=== PATIENT | female | born 1925 | race African-American/Black ===

== ENCOUNTER 2016-02-26 21:05 | Inpatient (IN) | payer MEDICARE, BC, OTHER ==
[~2016-02-26] VITALS: Ht 160 cm; Wt 71.7 kg
[~2016-02-26 21:05] MED LIST: ASPI81TA82 PO; FLOV44AE INH; FLUT1SPR9 EACH NARE; LEVO100T4 PO; REFR0.5D4 EACH EYE; VITA-83 PO; VITATAB25 PO; ZITH250T PO
[2016-02-26 21:08] VITALS: BP 144/66; PULSE 87; RESP 18; TEMP 101.5; O2SAT 95
[2016-02-26] MEDS ORDERED: SODIUM CHLOR 0.9% 1000 ML INJ 1,000 ML IV ONE (21:14)
[2016-02-26] MEDS ORDERED: ACETAMINOPHEN 325 MG TAB PO ONE (21:15)
[2016-02-26] MEDS ORDERED: ASPI81CH CHEW (21:21)
[2016-02-26] MEDS ORDERED: FLUTI44I INH (21:21)
[2016-02-26] MEDS ORDERED: VITA10003 PO (21:21)
[2016-02-26] MEDS ORDERED: LEVO100T5 PO (21:21)
[2016-02-26] MEDS ORDERED: ASCO500C PO (21:21)
[2016-02-26] MEDS ORDERED: REFR0.5D9 EACH EYE (21:21)
[2016-02-26] MEDS ORDERED: FLUT1SPR9 EACH NARE (21:21)
--- NOTE | 2016-02-26 22:21 | RADRPT ---
EXAM DATE/TIME: 02/26/2016 21:55 [facility] COMPARISON: CHEST SINGLE AP, December 21, 2015, 12:28. INDICATIONS : Fever, weakness starting today MEDICAL HISTORY : None. SURGICAL HISTORY : None. ENCOUNTER: Initial ACUITY: 1 day PAIN SCORE: 0/10 LOCATION: Bilateral chest FINDINGS: A single view of the chest demonstrates the lungs to be symmetrically aerated without evidence of mas s, infiltrate or effusion. The cardiomediastinal contours are unremarkable. Osseous structures are intact. CONCLUSION: No acute disease. Waqar Cortez MD on February 26, 2016 at 22:19 Board Certified Radiologist. This report was verified electronically.
[2016-02-26 22:34] LABS: AUTOMATED NEUTROPHIL # 3.9 TH/MM3 (1.8-7.7); EOSINOPHIL % 0.2 % (0.0-4.0); HEMATOCRIT 40.5 % (35.0-46.0); HEMO FLAGS DIFF FINAL; LYMPH % 2.9 % (9.0-44.0); LYMPHOCYTE # 0.1 TH/MM3 (1.0-4.8); MEAN CORPUSCULAR HEMOGLOBIN 28.3 PG (27.0-34.0); MEAN CORPUSCULAR HGB CONC 32.6 % (32.0-36.0); NEUT % 95.9 % (16.0-70.0); PLATELET COUNT 138 TH/MM3 (150-450); RED BLOOD COUNT 4.66 MIL/MM3 (4.00-5.30); RED CELL DISTRIBUTION WIDTH 15.2 % (11.6-17.2); WHITE BLOOD COUNT 4.1 TH/MM3 (4.0-11.0)
[2016-02-26 22:59] LABS: APTT (PATIENT) 20.9 SEC (24.3-30.1); PROTHROMBIN TIME - PATIENT 11.4 SEC (9.8-11.6)
[2016-02-26 23:03] LABS: ALKALINE PHOSPHATASE 114 U/L (45-117); TOTAL BILIRUBIN ADULT 0.7 MG/DL (0.2-1.0)
[2016-02-26 23:05] LABS: ALT (GPT) 38 U/L (10-53); ANION GAP 8 MEQ/L (5-15); AST (GOT) 37 U/L (15-37); BLOOD UREA NITROGEN 26 MG/DL (7-18); CHLORIDE 109 MEQ/L (98-107); GLOMERULAR FILTRATION RATE 34 ML/MIN (>89); MAGNESIUM 2.2 MG/DL (1.5-2.5); POTASSIUM 3.7 MEQ/L (3.5-5.1); SODIUM (NA) 144 MEQ/L (136-145)
--- NOTE | 2016-02-26 23:25 | PD ---
HPI Chief Complaint: Abdominal Pain Time Seen by Provider: 21:10 Travel History International Travel<30 days: No Contact w/Intl Traveler<30days: No Traveled to known affect area: No History of Present Illness HPI 89-year-old female presents with right sided abdominal pain and fever with nausea. She denies other complaints and is with her son who help supplement history. He states her symptoms all started this evening at 8 PM. He states that she was having chills and started saying she didn't feel good. She presented by ambulance. Patient is unable to supplement significant additional history and records help supplement. PFSH Past Medical History Narrative Medical by records Cancer: Yes Chemotherapy: Yes Diminished Hearing: Yes (HEARING AIDES BILAT) Hypertension: Yes Immunizations Current: Yes Thyroid Disease: Yes Past Surgical History Abdominal Surgery: Yes (ABD TUMOR REMOVED) Section: Yes Hysterectomy: Yes Social History Alcohol Use: No Tobacco Use: No Substance Use: No Allergies-Medications (Allergen,Severity, Reaction): Coded Allergies: Codeine (Verified Allergy, Severe, 02/26/16) Darvon (Verified Allergy, Severe, 02/26/16) Dyazide (Verified Allergy, Severe, 02/26/16) Penicillin (Verified Allergy, Severe, 02/26/16) Sulfa (Verified Allergy, Severe, 02/26/16) Uncoded Allergies: CHLAROMYCETIN (Allergy, Unknown, UNKNOWN, 02/26/16) Reported Meds & Prescriptions Reported Meds & Active Scripts Active Reported Levothyroxine (Levothyroxine Sodium) 100 Mcg Tab 100 Mcg PO DAILY Flonase Allergy Relief Children Nasal [place] (Fluticasone Nasal [place]) 50 Mcg/ Act [place] 2 [place] EACH NARE DAILY 50 mcg/spray Flovent Hfa 10.6 GM Inh (Fluticasone Propionate) 44 Mcg/Act Inh 2 Puff INH BID Use daily at the same time. Refresh Plus Unit-Dose Opth Drops (Carboxymethylcellulose Sodium Opth Drops) 0.5 % Drops 1 Drop EACH EYE HS Vitamin C (Ascorbic Acid) 500 Mg Cap 500 Mg PO Vitamin D-3 (Cholecalciferol) 1,000 Unit Tab 1,000 Units PO DAILY Aspirin 81 Mg Chew 81 Mg CHEW DAILY Review of Systems ROS Limitations: Poor Historian Except as stated in HPI: all other systems reviewed are Neg Physical Exam Exam Limitations: Poor Historian Narrative GENERAL: Well-nourished, well-developed patient. SKIN: Warm and dry. HEAD: Normocephalic and atraumatic. EYES: No injection or drainage. ENT: No nasal drainage noted. NECK: Supple, trachea midline. CARDIOVASCULAR: Regular rate and rhythm RESPIRATORY: no increased effort. No accessory muscle use. GASTROINTESTINAL: Abdomen soft, ttp rlq, nondistended. no rebound NEUROLOGICAL: Awake. moves all extremities. Normal speech. Data Data Last Documented VS Vital Signs Date Time Temp Pulse Resp B/P Pulse Ox O2 Delivery O2 Flow Rate FiO2 02/26/16 21:22 18 02/26/16 21:08 101.5 87 144/66 95 Orders Electrocardiogram (02/26/16 21:14) Complete Blood Count With Diff (02/26/16 21:14) Comprehensive Metabolic Panel (02/26/16 21:14) Prothrombin Time / Inr (Pt) (02/26/16 21:14) Act Partial Throm Time (Ptt) (02/26/16 21:14) Lactic Acid Sepsis Protocol (02/26/16 21:14) Magnesium (Mg) (02/26/16 21:14) Lipase (02/26/16 21:14) Urinalysis - C+S If Indicated (02/26/16 21:14) Blood Culture (02/26/16 21:14) Chest, Single Ap (02/26/16 21:14) Blood Glucose (02/26/16 21:14) Ecg Monitoring (02/26/16 21:14) Iv Access Insert/Monitor (02/26/16 21:14) Oximetry (02/26/16 21:14) Acetaminophen (Tylenol) (02/26/16 21:15) Ct Abd/Pel W Iv Contrast(Rout) (02/26/16 21:14) Sodium Chlor 0.9% 1000 Ml Inj (Ns 1000 M (02/26/16 21:14) Iodixanol 320 Inj (Rad Ct) (Visipaque 32 (02/26/16 23:35) Ketorolac Inj (Toradol Inj) (02/27/16 00:00) Urine Culture (02/27/16 00:15) Aztreonam Inj (Azactam Inj) (02/27/16 00:39) Admit Order (Ed Use Only) (02/27/16 00:41) Labs Laboratory Tests Test 02/26/16 02/27/16 22:15 00:15 Prothrombin Time 11.4 SEC Prothromb Time International 1.0 RATIO Ratio Activated Partial 20.9 SEC Thromboplast Time Sodium Level 144 MEQ/L Potassium Level 3.7 MEQ/L Chloride Level 109 MEQ/L Carbon Dioxide Level 27.0 MEQ/L Anion Gap 8 MEQ/L Blood Urea Nitrogen 26 MG/DL Creatinine 1.69 MG/DL Estimat Glomerular Filtration 34 ML/MIN Rate Random Glucose 117 MG/DL Lactic Acid Level 2.0 mmol/L Calcium Level 9.6 MG/DL Magnesium Level 2.2 MG/DL Total Bilirubin 0.7 MG/DL Aspartate Amino Transf 37 U/L (AST/SGOT) Alanine Aminotransferase 38 U/L (ALT/SGPT) Alkaline Phosphatase 114 U/L Total Protein 6.5 GM/DL Albumin 3.5 GM/DL Lipase 149 U/L White Blood Count 4.1 TH/MM3 Red Blood Count 4.66 MIL/MM3 Hemoglobin 13.2 GM/DL Hematocrit 40.5 % Mean Corpuscular Volume 87.0 FL Mean Corpuscular Hemoglobin 28.3 PG Mean Corpuscular Hemoglobin 32.6 % Concent Red Cell Distribution Width 15.2 % Platelet Count 138 TH/MM3 Mean Platelet Volume 9.4 FL Neutrophils (%) (Auto) 95.9 % Lymphocytes (%) (Auto) 2.9 % Monocytes (%) (Auto) 1.0 % Eosinophils (%) (Auto) 0.2 % Basophils (%) (Auto) 0.0 % Neutrophils # (Auto) 3.9 TH/MM3 Lymphocytes # (Auto) 0.1 TH/MM3 Monocytes # (Auto) 0.0 TH/MM3 Eosinophils # (Auto) 0.0 TH/MM3 Basophils # (Auto) 0.0 TH/MM3 CBC Comment DIFF FINAL Differential Comment Urine Color YELLOW Urine Turbidity HAZY Urine pH 5.5 Urine Specific [place] 1.019 Urine Protein 30 mg/dL Urine Glucose (UA) NEG mg/dL Urine Ketones NEG mg/dL Urine Occult Blood LARGE Urine Nitrite POS Urine Bilirubin NEG Urine Urobilinogen LESS THAN 2.0 MG/DL Urine Leukocyte Esterase LARGE Urine RBC 111 /hpf Urine WBC 89 /hpf Urine Squamous Epithelial 11 /hpf Cells Urine Renal Epithelial Cells 3 /hpf Urine Bacteria RARE /hpf Urine Mucus FEW /lpf Microscopic Urinalysis Comment CATH-CULTURE IND MDM Medical Decision Making Medical Screen Exam Complete: Yes Emergency Medical Condition: Yes Medical Record Reviewed: Yes (pmh confirmed) Interpretation(s) CBC & BMP Diagram 02/26/16 22:15 Last 24 hours Impressions Chest X-Ray 02/26/162113 Signed Impressions: Service Date/Time: Friday, February 26, 2016 21:55 - CONCLUSION: No acute disease. Waqar Cortez MD Abdomen/Pelvis CT 02/26/162113 Signed Impressions: Service Date/Time: Friday, February 26, 2016 23:22 - CONCLUSION: 1. 4 mm distal right ureteral calculus with mild to moderate right hydronephrosis. 2. Mildly nonspecific bowel gas pattern most consistent with a mild ileus and/or gastroenteritis. 3. Simple appearing cysts in the kidneys and liver. Huang Casper MD Differential Diagnosis UTI, stone, cyst, appendicitis, diverticulitis.... Narrative Course Will check blood work, chest x-ray, urinalysis, CT abdomen and dose with IV fluids and reevaluate, toradol for pain ct with 4 mm right distal ureteral stone, nurse had difficulty getting UA with catheter as patient could not tolerate. Advised patient given fever and kidney stone this is very important she is trying now on a fracture pain and if that does not work she agrees to trying catheter again ua with uti, will dose with aztreonam and admit to the hospital for further care , patient and family updated Physician Communication Physician Communication multiple calls placed to dr yoo without return of call, dr anthony guthrie states will cover overnight Diagnosis Primary Impression: Ureteral stone Additional Impressions: UTI (urinary tract infection) Qualified Code: N39.0 - Urinary tract infection with hematuria, site unspecified Fever Qualified Code: R50.9 - Fever, unspecified fever cause Renal insufficiency Admitting Information Admitting Physician Requests: Admit Юлия Booth MD Feb 26, 2016 23:25
[2016-02-26] MEDS ORDERED: IODIXANOL 320 MG/ML 10 ML VIAL (for Rad CT) IV ONE (23:35)
--- NOTE | 2016-02-26 23:49 | RADRPT ---
EXAM DATE/TIME: 02/26/2016 23:22 [facility] COMPARISON: None. INDICATIONS : Fever and left lower quadrant pain. IV CONTRAST: 47 cc Visipaque (iodixanol) IV ORAL CONTRAST: No oral contrast ingested. RADIATION DOSE: 14.28 CTDIvol (mGy) MEDICAL HISTORY : Hypertension. Carcinoma, not otherwise specified. SURGICAL HISTORY : Hysterectomy. section.tumor removed from abdomen ENCOUNTER: Initial ACUITY: 1 day PAIN SCALE: 6/10 LOCATION: Left lower quadrant abdomen TECHNIQUE: Volumetric scanning of the abdomen and pelvis was performed. Using automated exposure control and ad justment of the mA and/or kV according to patient size, radiation dose was kept as low as reasonably achievable to obtain optimal diagnostic quality images. FINDINGS: LOWER LUNGS: The visualized lower lungs are clear. LIVER: Normal in size and shape with 2 low attenuation lesions consistent with cysts. The larger is in the l eft lobe measuring up to approximately 1.8 cm. There is a smaller 8mm lesion in the right lobe.. The re is no dilation of the biliary tree. No calcified gallstones. SPLEEN: Normal size without lesion. PANCREAS: Within normal limits. KIDNEYS: Normal in size and shape. There is mild to moderate right hydronephrosis with dilatation of the right ureter down to the level of the proximal pelvis secondary to 4 mm calculus. There is a 8 x 5 mm calc ulus in the lower pole the right kidney. The left kidney is unremarkable except for small simple cyst s. There is a larger cyst in the upper pole of the right kidney. ADRENAL GLANDS: Within normal limits. VASCULAR: There is no aortic aneurysm. BOWEL/MESENTERY: There is a mildly nonspecific bowel gas pattern with multiple loops of nondilated air-containing smal l bowel several small air-fluid levels. Gas and stool is noted within with no focal lesion or inflamm atory change. No oral contrast was given sensitivity. There is no free air or fluid. There is no evid ence to suggest acute diverticulitis. ABDOMINAL WALL: Within normal limits. RETROPERITONEUM: There is no lymphadenopathy. BLADDER: No wall thickening or mass. REPRODUCTIVE: Within normal limits. INGUINAL: There is no lymphadenopathy or hernia. MUSCULOSKELETAL: Degenerative change and scoliosis is present in the lumbar spine. CONCLUSION: 1. 4 mm distal right ureteral calculus with mild to moderate right hydronephrosis. 2. Mildly nonspecific bowel gas pattern most consistent with a mild ileus and/or gastroenteritis. 3. Simple appearing cysts in the kidneys and liver. Huang Casper MD on February 26, 2016 at 23:40 Board Certified Radiologist. This report was verified electronically.
[2016-02-27] MEDS ORDERED: KETOROLAC TROMETHAMINE 30 MG/ML (IVP) VIAL IV PUSH ONE
[2016-02-27 00:30] LABS: BACTERIA, URINE RARE /hpf; BLOOD, URINE LARGE (NEG); COMMENT (UR) CATH-CULTURE IND; CULTURE IF INDICATED CATH CULTURE IND; GLUCOSE,URINE NEG (NEG); KETONE, URINE NEG (NEG); MUCUS URINE FEW /lpf (OCC); NITRITE,URINE POS (NEG); PH, URINE 5.5 (5.0-8.5); RENAL EPITHELIAL CELLS 3 /hpf; SQUAMOUS EPITHELIAL CELL URINE 11 /hpf (0-5); URINE COLOR YELLOW (YELLW/STRAW)
[2016-02-27] MEDS ORDERED: AZTREONAM INJ 1,000 MG in SODIUM CHLORIDE 0.9% INJ 100 ML IV STA (00:39)
[2016-02-27] MEDS ORDERED: NALOXONE HCL 0.4 MG/ML AMP IV PRN (02:15)
[2016-02-27] MEDS ORDERED: SODIUM CHLORIDE 0.9% FLUSH 5 ML FLUSH FLUSH PRN (02:15)
[2016-02-27] MEDS ORDERED: ONDANSETRON HCL 4 MG/2 ML VIAL IVP PRN (02:15)
[2016-02-27] MEDS ORDERED: ACETAMINOPHEN 325 MG TAB PO PRN (02:15)
[2016-02-27] MEDS: SODIUM CHLOR 0.9% 1000 ML INJ 1,000 ML IV SCH ×3 (03:48→17:59)
[2016-02-27 05:10] VITALS: BP 97/51; PULSE 77; RESP 22; TEMP 97.5; O2SAT 98
[2016-02-27] MEDS: LEVOTHYROXINE SODIUM 100 MCG TAB PO SCH (05:40)
[2016-02-27 08:04] VITALS: BP 115/55; PULSE 84; RESP 18; TEMP 95.2; O2SAT 92
[2016-02-27] MEDS: FLUTICASONE PROPIONATE 50 MCG/ACT 16 GM NASAL SPRAY EACH NARE SCH (09:00)
[2016-02-27] MEDS: FLUTICASONE PROPIONATE 44 MCG/ACT 10.6 GM INHALER INH SCH ×2 (09:00→21:00)
[2016-02-27] MEDS: TAMSULOSIN HCL 0.4 MG CAP PO SCH (10:10)
[2016-02-27] MEDS: SODIUM CHLORIDE 0.9% FLUSH 5 ML FLUSH FLUSH SCH ×2 (10:10→21:00)
[2016-02-27] MEDS: ASPIRIN 81 MG CHEW TAB CHEW SCH (10:10)
--- NOTE | 2016-02-27 10:23 | RADRPT ---
EXAM DATE/TIME: 02/27/2016 09:42 [facility] COMPARISON: CT ABDOMEN & PELVIS W CONTRAST, February 26, 2016, 23:22. INDICATIONS : Pain in LLQ, evaluate for calculi. MEDICAL HISTORY : Hypertension. SURGICAL HISTORY : Hysterectomy. ENCOUNTER: Subsequent ACUITY: 2 days PAIN SCORE: Non-responsive. LOCATION: Left abdomen FINDINGS: Supine view of the abdomen was performed. The abdominal bowel gas pattern is normal. There is stool in the colon. No abnormal dilatation is demonstrated. There is evidence of previous abdominal surgery with surgical clips in the lower midabdomen. Contrast is noted in both collecting systems. There is mild to moderate hydronephrosis of the right collecting system which has been previously described on patient's recent CT abdomen/pelvis. The right renal stone and right ureteral stone noted on the CT s can is not well-visualized on this exam. The stones are most likely hidden by the contrast in the col lecting system. No hydronephrosis is seen in the left collecting system. There is moderate diffuse de generative changes and distal degeneration involving the lumbar spine. The bony circular grossly inta ct. The urinary bladder is grossly unremarkable. CONCLUSION: 1. Mild to moderate hydronephrosis of the right collecting system. 2. Moderate stool in the colon. Martin Wade MD on February 27, 2016 at 10:18 Board Certified Radiologist. This report was verified electronically.
--- NOTE | 2016-02-27 11:56 | EKG ---
Date Performed: 02/26/2016 Time Performed: 22:25:49 PTAGE: 89 years EKG: Sinus rhythm WITH SINUS ARRHYTHMIA PATTERN CONSISTENT WITH PULMONARY DISEASE LEFT ANTERIOR FASCICULAR BLOCK NONSP ECIFIC T-WAVE ABNORMALITY ABNORMAL ECG Since PREVIOUS TRACING , no significant change noted PREVIOUS TRACIN12/21/2015 13.27 DOCTOR: Renny Costa Interpretating Date/Time 02/27/2016 11:54:05
[2016-02-27 12:41] VITALS: BP 115/53; PULSE 88; RESP 20; TEMP 96.4; O2SAT 92
--- NOTE | 2016-02-27 13:06 | HHI.HP ---
History of Present Illness Service INTERNAL MEDICINE Primary Care Physician AMARJIT ASIF MD Admission Diagnosis Right Ureteral Calculus. Right Hydronephrosis. Acute On Chronic Kidney Disease, Stage 2. Urinary Tract Infection, on admission. Diagnoses: History of Present Illness This patient is an 89 year old female who has a history of developing severe pain in the setting of also having fever and chills. The pain was in the right abdomen and right flank areas. She had associated nausea and vomiting episodes. The onset was around 8pm on the evening of admission. Her symptoms continued to worsen and she told her son that she was feeling worse. Emergency services were called as she had become extremely weak. Otherwise, she has been in her usual state of health without any adverse changes. There is no report of any recent major illness, infection or trauma. Also, she has not had any recent travel. She was transported to the [facility] Emergency Room and found with a ureteral calculus with associated intractable pain and urinary tract infection. She was stabilized and admitted to the hospital in this regard. Review of Systems Constitutional: COMPLAINS OF: Fever, Chills Gastrointestinal: COMPLAINS OF: Abdominal pain, Nausea, Vomiting Past Family Social History Allergies: Coded Allergies: Codeine (Verified Allergy, Severe, 02/26/16) Darvon (Verified Allergy, Severe, 02/26/16) Dyazide (Verified Allergy, Severe, 02/26/16) Penicillin (Verified Allergy, Severe, 02/26/16) Sulfa (Verified Allergy, Severe, 02/26/16) Uncoded Allergies: CHLAROMYCETIN (Allergy, Unknown, UNKNOWN, 02/26/16) Past Medical History 1. Allergies. 2. Hypothyroidism. 3. Hyperlipidemia. 4. Advanced Osteoarthritis. 5. Chronic Kidney Disease, Stage 2. Past Surgical History 1. Hysterectomy. 2. Caesarian Section. 3. Removal of Abdominal Tumor. Family History She has an elderly sister with multiple medical problems. She has a son who visits frequently from [place] in good health. Social History She is a . She has in home caretakers. She is of nonsmoking and nondrinking status. She makes no use of recreational drugs. Physical Exam Vital Signs Vital Signs Date Time Temp Pulse Resp B/P Pulse Ox O2 Delivery O2 Flow Rate FiO2 02/27/16 08:04 95.2 84 18 115/55 92 02/27/16 05:10 97.5 77 22 97/51 98 02/26/16 21:22 18 02/26/16 21:08 101.5 87 18 144/66 95 Physical Exam GENERAL: This is a well-nourished, well-developed patient, in no apparent distress while getting analgesic support. SKIN: No rashes, ecchymoses or lesions. Cool and dry. HEAD: Atraumatic. Normocephalic. No temporal or scalp tenderness. EYES: Pupils equal round and reactive. There is arcus senilis for both eyes. Extraocular motions intact. No scleral icterus. No injection or drainage. ENT: Nose is without any drainage. Throat without erythema, tonsillar hypertrophy or exudate. Uvula midline. Airway patent. NECK: Trachea midline. No JVD, thyromegaly, carotid bruits or lymphadenopathy. Supple, nontender, no meningeal signs. CARDIOVASCULAR: Regular rate and rhythm to exam. RESPIRATORY: Clear to auscultation. Breath sounds equal bilaterally. No wheezes , rales, or rhonchi. GASTROINTESTINAL: Abdomen soft, non-tender, nondistended. No hepato-splenomegaly , or palpable masses. No guarding. MUSCULOSKELETAL: Extremities without clubbing, cyanosis, or edema. No joint tenderness, effusion, or edema noted. No calf tenderness. Negative Homans sign bilaterally. Sequential compression wraps are on both lower limbs. NEUROLOGICAL: Awake and alert. Cranial nerves II through XII intact. Motor and sensory grossly within normal limits. Five out of 5 muscle strength in all muscle groups. Normal speech. Laboratory Laboratory Tests Test 02/26/16 02/27/16 22:15 00:15 Prothrombin Time 11.4 Prothromb Time International 1.0 Ratio Activated Partial 20.9 Thromboplast Time Sodium Level 144 Potassium Level 3.7 Chloride Level 109 Carbon Dioxide Level 27.0 Anion Gap 8 Blood Urea Nitrogen 26 Creatinine 1.69 Estimat Glomerular Filtration 34 Rate Random Glucose 117 Lactic Acid Level 2.0 Calcium Level 9.6 Magnesium Level 2.2 Total Bilirubin 0.7 Aspartate Amino Transf 37 (AST/SGOT) Alanine Aminotransferase 38 (ALT/SGPT) Alkaline Phosphatase 114 Total Protein 6.5 Albumin 3.5 Lipase 149 White Blood Count 4.1 Red Blood Count 4.66 Hemoglobin 13.2 Hematocrit 40.5 Mean Corpuscular Volume 87.0 Mean Corpuscular Hemoglobin 28.3 Mean Corpuscular Hemoglobin 32.6 Concent Red Cell Distribution Width 15.2 Platelet Count 138 Mean Platelet Volume 9.4 Neutrophils (%) (Auto) 95.9 Lymphocytes (%) (Auto) 2.9 Monocytes (%) (Auto) 1.0 Eosinophils (%) (Auto) 0.2 Basophils (%) (Auto) 0.0 Neutrophils # (Auto) 3.9 Lymphocytes # (Auto) 0.1 Monocytes # (Auto) 0.0 Eosinophils # (Auto) 0.0 Basophils # (Auto) 0.0 CBC Comment DIFF FINAL Differential Comment Urine Color YELLOW Urine Turbidity HAZY Urine pH 5.5 Urine Specific [place] 1.019 Urine Protein 30 Urine Glucose (UA) NEG Urine Ketones NEG Urine Occult Blood LARGE Urine Nitrite POS Urine Bilirubin NEG Urine Urobilinogen LESS THAN 2.0 Urine Leukocyte Esterase LARGE Urine RBC 111 Urine WBC 89 Urine Squamous Epithelial 11 Cells Urine Renal Epithelial Cells 3 Urine Bacteria RARE Urine Mucus FEW Microscopic Urinalysis Comment CATH-CULTURE IND Date/Time Procedure Status Source Growth 02/27/16 00:15 Urine Culture Received Urine Catheterized Urine Pending 02/26/16 22:15 Aerobic Blood Culture - Preliminary Resulted Blood Peripheral NO GROWTH IN 1 DAY 02/26/16 22:15 Anaerobic Blood Culture - Preliminary Resulted Blood Peripheral NO GROWTH IN 1 DAY Result Diagram: 02/26/165 02/26/165 Assessment and Plan Assessment and Plan ASSESSMENT 1. Right Ureteral Calculus. 2. Right Hydronephrosis. 3. Urinary Tract Infection, on admission. 4. Intractable Pain. 5. Chronic Kidney Disease, Stage 2. 6. Advanced Osteoarthritis. 7. Hypothyroidism. 8. Hyperlipidemia. 9. Allergies. PLAN 1. Admit to the hospital as an Inpatient. 2. Intravenous antibiotics. 3. Intravenous analgesic support. 4. Intravenous hydration with electrolyte repletion. 5. Consultation to Urology. 6. Follow up laboratory assessment. 7. DVT and PE prophylaxis. Amarjit Asif MD Feb 27, 2016 13:06
--- NOTE | 2016-02-27 14:41 | MB ---
cc: DOMINIK AMAYA MD, DANNIE E. M.D. DATE OF CONSULTATION: 02/27/2016 REASON FOR CONSULTATION 1. Right ureteral calculus with mild hydronephrosis. 2. Right renal stone. 3. Urinary tract infection. HISTORY OF PRESENT ILLNESS The patient is a 89-year-old female with history of chronic kidney disease stage II, who began having right upper quadrant pain radiating to her right flank yesterday afternoon associated with nausea and vomiting. She notified her son who called 911 and was taken to [facility] by ambulance. She was also extremely weak. Otherwise, she had been in her usual state of health without any adverse changes. In the ER she had a CT of the abdomen and pelvis with and without contrast done which showed a 6 mm stone in the right lower pole of her kidney as well as a 4 mm mid ureteral stone with mild hydronephrosis. She also has a slightly elevated creatinine of 1.6 and a urinary tract infection. She was subsequently admitted for further evaluation and urology was consulted. Currently she is sleeping in her bed after getting a dose of pain medication approximated 10 o'clock this morning. Her son is providing history. According to her son she denied any pain today, she denies any prior history of kidney stones, denies any family history of kidney stones as well. He denies any recent fevers or chills today. He has also not noticed her complain of any nausea or vomiting. REVIEW OF SYSTEMS See HPI, otherwise all systems reviewed otherwise were negative. PAST MEDICAL HISTORY Significant for: 1. Hypothyroidism. 2. Hyperlipidemia. 3. Chronic kidney disease, stage II. 4. Advanced osteoarthritis. PAST SURGICAL HISTORY 1. Status post hysterectomy. 2. Status post section. 3. Status post removal of abdominal tumor. ALLERGIES CLARITHROMYCIN, CODEIEN, DYAZIDE, PENICILLIN, SULFA. FAMILY HISTORY Denies urolithiasis or genitourinary malignancy. SOCIAL HISTORY She is a . She has home caretakers. She does not smoke or drink or use illicit drugs. PHYSICAL EXAMINATION VITAL SIGNS: Her T-max is 101.5, T current is 96.4, pulse 88, respiratory rate 20, BP 115/53, sating 92% on room air. GENERAL: She is resting comfortably in her bed sound asleep. HEAD: Normocephalic, atraumatic. LUNGS: Clear to auscultation bilaterally. No wheezes, rales or rhonchi. HEART: Regular rate and rhythm. No murmurs, gallops or rubs. ABDOMEN: Soft, nontender, nondistended. Positive bowel sounds. GENITOURINARY: No CVA tenderness bilaterally. PELVIC: Exam deferred. EXTREMITIES: Nontender, no clubbing, cyanosis or edema. SKIN: No ulcers or rashes. PSYCHE: Normal affect. MUSCULOSKELETAL: Full range of motion. LABORATORY DATA White count 4.1, hemoglobin 13.2, hematocrit 40.5, platelet count 138. Sodium 144, potassium 3.7, chloride 109, bicarb 27, BUN 26, creatinine 1.69, glucose 117, calcium 9.6. Urinalysis shows urine pH 5.5, specific gravity 1.019, large blood, positive nitrate, large leukocyte esterase, culture is currently pending. IMAGING STUDIES CT of the abdomen and pelvis with and without contrast was performed. She has mild right hydronephrosis secondary to a 4 mm mid ureteral stone. She also has nonobstructing 6 mm right renal stone. ASSESSMENT AND PLAN The patient is a 89-year-old female with history of chronic kidney disease, who presented with right upper quadrant pain and flank pain and a UTI, was found to have a 4 mm mid ureteral stone with mild hydronephrosis as well as a 6 mm non-obstructing right ureteral stone. PLAN Currently the patient is resting comfortably. She has not had a fever for almost 12 hours. A KUB was done earlier today which showed the presence of contrast in her right kidney but also contrast the entire length of the ureter and entering her bladder on the right side indicating she has a minimal obstruction on the right side and possibly already passed the stone. Recommend conservative management at this time. Will allow her to eat on her own. Will start her on Flomax 0.4 mg daily and strain all her urine, also continue IV fluids. She has a high likelihood of passing the stone based on the size and location as well as the way her ureter looked on CAT scan, it was dilated distal to the stone as well indicating that she has somewhat of a high-pressure system. If she continues to improve then she can be discharged home and follow up as an outpatient for treatment of her stones. However, if her clinical picture worsens, then she will need intervention. The case was discussed with her son who agrees with the plan. MD SHERWIN Loredo/PRINCESS /1:28 PM /2:07 PM
[2016-02-27 15:42] VITALS: BP 91/54; PULSE 62; RESP 20; TEMP 96.2; O2SAT 92
[2016-02-27] MEDS: AZTREONAM INJ 1,000 MG in SODIUM CHLORIDE 0.9% INJ 100 ML IV SCH (17:59)
[2016-02-27 20:00] VITALS: BP 120/56; PULSE 77; RESP 22; TEMP 97.4; O2SAT 94
[2016-02-27] MEDS: CARBOXYMETHYLCELL SOD 0.5% OPTH SOLN 15 ML BTL EACH EYE SCH (21:48)
[2016-02-28 00:41] VITALS: BP 115/58; PULSE 72; RESP 18; TEMP 96.1; O2SAT 99
[2016-02-28] MEDS: SODIUM CHLOR 0.9% 1000 ML INJ 1,000 ML IV SCH ×3 (01:38→18:06)
[2016-02-28] MEDS: AZTREONAM INJ 1,000 MG in SODIUM CHLORIDE 0.9% INJ 100 ML IV SCH ×2 (04:24→15:50)
[2016-02-28 06:11] VITALS: BP 112/53; PULSE 68; RESP 16; TEMP 96.7; O2SAT 98
[2016-02-28] MEDS: LEVOTHYROXINE SODIUM 100 MCG TAB PO SCH (06:19)
[2016-02-28 06:57] LABS: AUTOMATED NEUTROPHIL # 15.2 TH/MM3 (1.8-7.7); BASOPHIL # 0.1 TH/MM3 (0-0.2); BASOPHIL % 0.3 % (0.0-2.0); EOSINOPHIL # 0.1 TH/MM3 (0-0.4); EOSINOPHIL % 0.4 % (0.0-4.0); HEMATOCRIT 33.5 % (35.0-46.0); HEMO FLAGS DIFF FINAL; LYMPH % 5.2 % (9.0-44.0); LYMPHOCYTE # 0.9 TH/MM3 (1.0-4.8); MONO % 6.9 % (0.0-8.0); NEUT % 87.2 % (16.0-70.0); PLATELET COUNT 100 TH/MM3 (150-450); RED BLOOD COUNT 3.94 MIL/MM3 (4.00-5.30); RED CELL DISTRIBUTION WIDTH 15.2 % (11.6-17.2); WHITE BLOOD COUNT 17.4 TH/MM3 (4.0-11.0)
[2016-02-28 07:22] LABS: POTASSIUM 3.4 MEQ/L (3.5-5.1)
[2016-02-28 08:00] VITALS: BP 101/50; PULSE 66; RESP 19; TEMP 96.1; O2SAT 98
[2016-02-28] MEDS: FLUTICASONE PROPIONATE 50 MCG/ACT 16 GM NASAL SPRAY EACH NARE SCH ×2 (09:00→13:00)
[2016-02-28] MEDS: FLUTICASONE PROPIONATE 44 MCG/ACT 10.6 GM INHALER INH SCH ×2 (09:00→20:57)
[2016-02-28] MEDS: SODIUM CHLORIDE 0.9% FLUSH 5 ML FLUSH FLUSH SCH ×2 (09:00→20:58)
[2016-02-28] MEDS: TAMSULOSIN HCL 0.4 MG CAP PO SCH (09:07)
[2016-02-28] MEDS: ASPIRIN 81 MG CHEW TAB CHEW SCH (09:07)
[2016-02-28 12:00] VITALS: BP 125/57; PULSE 65; RESP 16; TEMP 96.2; O2SAT 99
--- NOTE | 2016-02-28 12:19 | HHI.PR ---
Subjective Remarks denies pain. Denies fevers. much more alert, with it per son. Objective Vital Signs Vital Signs Date Time Temp Pulse Resp B/P Pulse Ox O2 Delivery O2 Flow Rate FiO2 02/28/16 08:00 96.1 66 19 101/50 98 02/28/16 06:11 96.7 68 16 112/53 98 02/28/16 00:41 96.1 72 18 115/58 99 02/27/16 20:00 97.4 77 22 120/56 94 02/27/16 15:42 96.2 62 20 91/54 92 02/27/16 12:41 96.4 88 20 115/53 92 I/O 02/27/16 02/27/16 02/27/16 02/28/16 02/28/16 02/28/16 07:00 15:00 23:00 07:00 15:00 23:00 Intake Total 1524 ml 1328 ml Output Total 50 ml Balance 1474 ml 1328 ml Intake Oral 720 ml IV Total 804 ml 1328 ml Output Urine Total 50 ml # Voids 4 2 # Bowel Movements 0 1 Result Diagram: 02/28/16 0647 02/28/16 0647 Objective Remarks NAD. abd soft, No CVAT Assessment and Plan Problem List: (1) Ureteral stone ICD Code: N20.1 Status: Acute (2) UTI (urinary tract infection) ICD Code: N39.0 Status: Acute Assessment and Plan -Doing well -Recommend continue antibioitcs for UTI -Conservative management of stones with Flomax, strain urine. -F/U in 2-[address] Scan. -Please call with any questions. Problem Qualifiers (1) UTI (urinary tract infection): Qualified Code: N39.0 - Urinary tract infection with hematuria, site unspecified Ronan Byrd MD Feb 28, 2016 12:19
--- NOTE | 2016-02-28 12:53 | HHI.PR ---
Subjective Remarks She is sitting up in the bed and eating her lunch. Her son is in the room and states he spoke to the Urologist just earlier. He feels that his mother is much more alert and "with it" today as compared to most of yesterday. She appears to be tolerating the current medication regimen well. Objective Vital Signs Date Time Temp Pulse Resp B/P Pulse Ox O2 Delivery O2 Flow Rate FiO2 02/28/16 08:00 96.1 66 19 101/50 98 02/28/16 06:11 96.7 68 16 112/53 98 02/28/16 00:41 96.1 72 18 115/58 99 02/27/16 20:00 97.4 77 22 120/56 94 02/27/16 15:42 96.2 62 20 91/54 92 I/O 02/27/16 02/27/16 02/27/16 02/28/16 02/28/16 02/28/16 06:59 14:59 22:59 06:59 14:59 22:59 Intake Total 1524 ml 1328 ml Output Total 50 ml Balance 1474 ml 1328 ml Intake Oral 720 ml IV Total 804 ml 1328 ml Output Urine Total 50 ml # Voids 4 2 # Bowel Movements 0 1 Result Diagram: 02/28/16 0647 02/28/16 0647 Objective Remarks GENERAL: She is alert and does not appear to be in any acute distress. SKIN: Warm and dry. HEAD: Normocephalic. EYES: No scleral icterus. No injection or drainage. NECK: Supple, trachea midline. No JVD or lymphadenopathy. CARDIOVASCULAR: Regular rate and rhythm without murmurs, gallops, or rubs. RESPIRATORY: Breath sounds equal bilaterally. No accessory muscle use. GASTROINTESTINAL: Abdomen soft, non-tender, nondistended. MUSCULOSKELETAL: No cyanosis, or edema. BACK: Nontender without obvious deformity. No CVA tenderness. Assessment and Plan Assessment and Plan ASSESSMENT 1. Right Ureteral Calculus. 2. Right Hydronephrosis. 3. Urinary Tract Infection, on admission. 4. Intractable Pain. 5. Chronic Kidney Disease, Stage 2. 6. Advanced Osteoarthritis. 7. Hypothyroidism. 8. Hyperlipidemia. 9. Allergies. PLAN 1. Urology follows. 2. Intravenous antibiotics. 3. Intravenous analgesic support. 4. Intravenous hydration with electrolyte repletion. 5. Advance her activity, as tolerated. 6. Follow up laboratory assessment. 7. DVT and PE prophylaxis. Amarjit Asif MD Feb 28, 2016 12:53
[2016-02-28 16:00] VITALS: BP 131/69; PULSE 68; RESP 17; TEMP 96.8; O2SAT 99
[2016-02-28 20:00] VITALS: BP 156/83; PULSE 80; RESP 18; TEMP 96.8; O2SAT 96
[2016-02-28] MEDS: CARBOXYMETHYLCELL SOD 0.5% OPTH SOLN 15 ML BTL EACH EYE SCH (20:58)
[2016-02-29] VITALS (7 sets, daily range): BP systolic 141–177; BP diastolic 69–91; PULSE 65–118; RESP 16–20; TEMP 95.2–96.7; O2SAT 94–100
[2016-02-29] MEDS: AZTREONAM INJ 1,000 MG in SODIUM CHLORIDE 0.9% INJ 100 ML IV SCH (04:00)
[2016-02-29] MEDS: LEVOTHYROXINE SODIUM 100 MCG TAB PO SCH (04:29)
[2016-02-29] MEDS: ASPIRIN 81 MG CHEW TAB CHEW SCH (09:00)
[2016-02-29] MEDS: FLUTICASONE PROPIONATE 44 MCG/ACT 10.6 GM INHALER INH SCH ×2 (09:00→21:00)
[2016-02-29] MEDS: TAMSULOSIN HCL 0.4 MG CAP PO SCH (09:00)
[2016-02-29] MEDS: SODIUM CHLORIDE 0.9% FLUSH 5 ML FLUSH FLUSH SCH ×2 (09:00→21:00)
[2016-02-29] MEDS: FLUTICASONE PROPIONATE 50 MCG/ACT 16 GM NASAL SPRAY EACH NARE SCH ×2 (09:00)
--- NOTE | 2016-02-29 13:51 | HHI.PR ---
Subjective Remarks She is lying in the bed and has not eaten lunch yet according to her son. He states she appears to be with some confusion today. She appears to be tolerating the current medication regimen okay. Objective Vital Signs Date Time Temp Pulse Resp B/P Pulse Ox O2 Delivery O2 Flow Rate FiO2 02/29/16 12:00 95.2 65 16 142/78 98 02/29/16 08:00 96.5 75 16 141/90 02/29/16 04:00 96.7 79 19 154/91 96 02/29/16 00:00 96.3 118 20 158/88 94 02/28/16 20:00 96.8 80 18 156/83 96 02/28/16 16:00 96.8 68 17 131/69 99 I/O 02/28/16 02/28/16 02/28/16 02/29/16 02/29/16 02/29/16 07:00 15:00 23:00 07:00 15:00 23:00 Intake Total 1328 ml Balance 1328 ml IV Total 1328 ml # Voids 2 2 1 2 # Bowel Movements 1 1 1 Result Diagram: 02/28/16 0647 02/28/16 0647 Objective Remarks GENERAL: She is alert, but does appear to have more confusion today. SKIN: Warm and dry. HEAD: Normocephalic. EYES: No scleral icterus. No injection or drainage. NECK: Supple, trachea midline. No JVD or lymphadenopathy. CARDIOVASCULAR: Regular rate and rhythm without murmurs, gallops, or rubs. RESPIRATORY: Breath sounds equal bilaterally. No accessory muscle use. GASTROINTESTINAL: Abdomen soft, non-tender, nondistended. MUSCULOSKELETAL: No cyanosis, or edema. BACK: Nontender without obvious deformity. No CVA tenderness. Assessment and Plan Assessment and Plan ASSESSMENT 1. Right Ureteral Calculus. 2. Right Hydronephrosis. 3. Urinary Tract Infection, on admission. 4. Intractable Pain. 5. Chronic Kidney Disease, Stage 2. 6. Advanced Osteoarthritis. 7. Hypothyroidism. 8. Hyperlipidemia. 9. Allergies. = Some mental confusion today. PLAN 1. Urology follows. 2. Intravenous antibiotics-Change to Ceftriaxone. 3. Oral analgesic support, as needed. 4. Intravenous hydration with electrolyte repletion. 5. Advance her activity, as tolerated. 6. Reassess laboratory status. 7. DVT and PE prophylaxis. Amarjit Asif MD Feb 29, 2016 13:51
[2016-02-29 15:14] LABS: AUTOMATED NEUTROPHIL # 15.7 TH/MM3 (1.8-7.7); BASOPHIL # 0.1 TH/MM3 (0-0.2); BASOPHIL % 0.5 % (0.0-2.0); EOSINOPHIL # 0.1 TH/MM3 (0-0.4); EOSINOPHIL % 0.6 % (0.0-4.0); HEMATOCRIT 37.4 % (35.0-46.0); HEMO FLAGS DIFF FINAL; LYMPH % 6.2 % (9.0-44.0); LYMPHOCYTE # 1.1 TH/MM3 (1.0-4.8); MEAN CELL VOLUME 84.8 FL (80.0-100.0); MEAN CORPUSCULAR HEMOGLOBIN 27.9 PG (27.0-34.0); MEAN CORPUSCULAR HGB CONC 32.9 % (32.0-36.0); NEUT % 88.7 % (16.0-70.0); PLATELET COUNT 132 TH/MM3 (150-450); RED BLOOD COUNT 4.41 MIL/MM3 (4.00-5.30); RED CELL DISTRIBUTION WIDTH 15.2 % (11.6-17.2); WHITE BLOOD COUNT 17.6 TH/MM3 (4.0-11.0)
[2016-02-29 15:42] LABS: BICARBONATE 24.3 MEQ/L (21.0-32.0); MAGNESIUM 2.1 MG/DL (1.5-2.5); POTASSIUM 3.8 MEQ/L (3.5-5.1)
[2016-02-29] MEDS: CIPROFLOXACIN 200 MG PREMIX 100 ML IV SCH (15:55)
[2016-02-29] MEDS: CARBOXYMETHYLCELL SOD 0.5% OPTH SOLN 15 ML BTL EACH EYE SCH (21:00)
[2016-03-01] MEDS: SODIUM CHLOR 0.9% 1000 ML INJ 1,000 ML IV SCH ×3 (02:04→16:48)
[2016-03-01] MEDS: CIPROFLOXACIN 200 MG PREMIX 100 ML IV SCH ×2 (02:04→14:25)
[2016-03-01 05:11] VITALS: BP 171/89; PULSE 106; RESP 18; TEMP 97.4; O2SAT 98
[2016-03-01] MEDS: LEVOTHYROXINE SODIUM 100 MCG TAB PO SCH (06:16)
[2016-03-01 08:00] VITALS: BP 157/80; PULSE 70; RESP 18; TEMP 96.5; O2SAT 98
[2016-03-01] MEDS: FLUTICASONE PROPIONATE 44 MCG/ACT 10.6 GM INHALER INH SCH (08:26)
[2016-03-01] MEDS: TAMSULOSIN HCL 0.4 MG CAP PO SCH (08:26)
[2016-03-01] MEDS: ASPIRIN 81 MG CHEW TAB CHEW SCH (08:26)
[2016-03-01] MEDS: SODIUM CHLORIDE 0.9% FLUSH 5 ML FLUSH FLUSH SCH (08:27)
[2016-03-01] MEDS: FLUTICASONE PROPIONATE 50 MCG/ACT 16 GM NASAL SPRAY EACH NARE SCH ×2 (08:27)
[2016-03-01 12:00] VITALS: BP 102/58; PULSE 100; RESP 20; TEMP 97.2; O2SAT 99
[2016-03-01 14:00] VITALS: BP 151/83; PULSE 68; RESP 15; TEMP 97.3; O2SAT 99
--- NOTE | 2016-03-01 16:30 | HHI.PR ---
Subjective Remarks She is lying in the bed and her son is sitting at the bedside. He states she has not had any confusion today. She appears to be tolerating the current medication regimen okay. Objective Vital Signs Date Time Temp Pulse Resp B/P Pulse Ox O2 Delivery O2 Flow Rate FiO2 03/01/16 12:00 97.2 100 20 102/58 99 03/01/16 08:00 96.5 70 18 157/80 98 03/01/16 05:11 97.4 106 18 171/89 98 02/29/16 23:54 96.5 71 19 154/69 98 02/29/16 20:58 96.5 87 19 177/81 98 I/O 02/29/16 02/29/16 02/29/16 03/01/16 03/01/16 03/01/16 07:00 15:00 23:00 07:00 15:00 23:00 Intake Total 500 ml 240 ml Balance 500 ml 240 ml Intake Oral 500 ml 240 ml # Voids 2 3 1 # Bowel Movements 3 Result Diagram: 02/29/16 1453 02/29/16 1453 Objective Remarks GENERAL: She is alert, but does appear to have more confusion today. SKIN: Warm and dry. HEAD: Normocephalic. EYES: No scleral icterus. No injection or drainage. NECK: Supple, trachea midline. No JVD or lymphadenopathy. CARDIOVASCULAR: Regular rate and rhythm without murmurs, gallops, or rubs. RESPIRATORY: Breath sounds equal bilaterally. No accessory muscle use. GASTROINTESTINAL: Abdomen soft, non-tender, nondistended. MUSCULOSKELETAL: No cyanosis, or edema. BACK: Nontender without obvious deformity. No CVA tenderness. Assessment and Plan Assessment and Plan ASSESSMENT 1. Right Ureteral Calculus. 2. Right Hydronephrosis. 3. Urinary Tract Infection, on admission. 4. Intractable Pain. 5. Chronic Kidney Disease, Stage 2. 6. Advanced Osteoarthritis. 7. Hypothyroidism. 8. Hyperlipidemia. 9. Allergies. MEDICALLY IMPROVED STATUS. PLAN 1. Urology follows. 2. Intravenous antibiotics-Change to Ceftriaxone. 3. Oral analgesic support, as needed. 4. Intravenous hydration with electrolyte repletion. 5. Advance her activity, as tolerated. 6. Reassess laboratory status. 7. DVT and PE prophylaxis. HOME TODAY WITH CLOSE OUTPATIENT FOLLOW UP. Amarjit Asif MD Mar 01, 2016 16:30
[2016-03-01] MEDS ORDERED: CIPR250T2 PO (16:35)
--- NOTE | 2016-08-05 07:28 | MD ---
cc: MAURO ASFI M.D. ADMISSION DATE: 02/27/2016 DISCHARGE DATE: 03/01/2016 ADMISSION DIAGNOSIS Severe pain, fever, chills. DISCHARGE DIAGNOSES 1. Right ureteral calculus. 2. Right hydronephrosis. 3. Urinary tract infection on admission. 4. Intractable pain. 5. Chronic kidney disease, Stage II. 6. Advanced osteoarthritis. 7. Hypothyroidism. 8. Hyperlipidemia. 9. Allergies. BRIEF HISTORY The patient is an 89-year-old female who has a presentation whereby she was found to have recurrent episodes of pain and also was having recurrent fever and chills. The patient's pain was located in the right abdomen and right flank area. She had associated nausea and a few episodes of vomiting. The patient's status did not improve with conservative outpatient measures being tried. Emergency Services was then called as the patient had become severely weakened. She was transported to the [facility] Department for evaluation. The patient was found with a ureteral calculus and associated hydronephrosis. This was also in the setting of urinary tract infection. She was stabilized and admitted to the hospital in this regard. PERTINENT PHYSICAL FINDINGS GENERAL: The patient was alert and appeared markedly weakened on presentation. HEART: Regular rhythm with S1 and S2 distinct. LUNGS: Appear clear bilaterally to auscultation. ABDOMEN: Soft with presentation of tenderness to firm palpation in the right mid to lower abdominal area and also in the right flank region. No masses were palpated. EXTREMITIES: Good range of motion with major hypertrophic changes at both knees. Crepitation on range of motion was noted at the knees as well. The patient had mild peripheral edema to exam. NEUROLOGICAL: No lateralizing focal motor deficits were noted. HOSPITAL COURSE She was admitted to the hospital and consultation was made to Urology regarding her presentation. She was given intravenous hydration and correction of electrolytes were done as well. The patient was also placed on intravenous antibiotics as well as having analgesic support rendered. With the intravenous hydration being given and the placement on the antibiotics, by the next day the patient had resolution of her febrile status. The patient was seen by Urology and recommendations were to continue with aggressive hydration. The patient will have the urine strained for retrieval of ureteral stones. She was placed on Flomax and was recommended to continue with conservative management for the urinary stones. She will continue with intravenous antibiotic treatment for the urinary tract infection. Recommended was to Urology in followup for repeat CAT scan to be done about 2 weeks after discharge. The patient was continued with aggressive treatment for her other status with following of her intake and output status as well as her laboratory investigations. She had resolution of her febrile status and her activity was then increased with the use of physical therapy. Discussion was done with the son on 03/01/2016 as the patient had shown improvement with stabilization toward discharge. Medications had been changed to the oral form and the patient did not have any further febrile status. Plans were made with the assistance of Case Management for having home health care after discharge and to be discharged on 03/01/2016. DISCHARGE DISPOSITION DIET: The patient will be on a general healthy diet. MEDICATIONS 1. Ascorbic acid 500 mg daily. 2. Aspirin 81 mg daily. 3. Vitamin D3 1000 I.U. daily. 4. Flovent HFA inhaler 2 puffs b.i.d. 5. Levothyroxine 0.1 mg daily. 6. Temazepam 15 mg q.h.s. p.r.n. 7. Ciprofloxacin 250 mg b.i.d. for 1 week course. 8. Benzonatate 100 mg t.i.d. for 1 week course. ACTIVITY The patient's activity would be per home health care physical therapy as she would tolerate. FOLLOWUP The patient will be discharged home and have home health care followup. She is to see Dr. Asif one week after discharge. MD FORTINO Yo/OTTO /12:30 PM /7:13 AM
== END 2016-03-01 19:24 | disposition home or self-care (01) | DRG 690 ==
LOC: NEPC 21:05 → NEDA 02-27 00:43 → N05B 02-27 04:38
PROVIDERS: ADMIT Internal Medicine; ATTEND Internal Medicine
DX: N13.6 Pyonephrosis (principal); N20.2 Calculus of kidney with calculus of ureter; N39.0 Urinary tract infection, site not specified; N18.2 Chronic kidney disease, stage 2 (mild); E03.9 Hypothyroidism, unspecified; E78.5 Hyperlipidemia, unspecified; H91.93 Unspecified hearing loss, bilateral; M19.90 Unspecified osteoarthritis, unspecified site; Z88.0 Allergy status to penicillin; Z88.1 Allergy status to other antibiotic agents; Z88.2 Allergy status to sulfonamides; Z88.5 Allergy status to narcotic agent
CPT/HCPCS: 71010; 74000; 74177; 76937; 80048; 80053; 81001; 83605; 83690; 83735; 85025; 85610; 85730; 87040; 87077; 87086; 87186; 93005; 96374; 96375; J0744; J1885; J7030; Q9967

== ENCOUNTER 2016-06-11 16:06 | Inpatient (IN) | payer MEDICARE, BC, OTHER ==
[~2016-06-11] VITALS: Ht 167.6 cm; Wt 65.9 kg
[~2016-06-11 16:06] MED LIST changes: +ASCO500C PO; +ASPI81CH CHEW; -ASPI81TA82 PO; +CIPR250T2 PO; -FLOV44AE INH; +FLUTI44I INH; -LEVO100T4 PO; +LEVO100T5 PO; -REFR0.5D4 EACH EYE; +REFR0.5D9 EACH EYE; -VITA-83 PO; +VITA10003 PO; -VITATAB25 PO; -ZITH250T PO
[2016-06-11 16:19] VITALS: BP 129/58; PULSE 63; RESP 18; TEMP 97.6; O2SAT 99
--- NOTE | 2016-06-11 16:27 | PD ---
HPI Chief Complaint: back pain Time Seen by Provider: 16:25 Travel History International Travel<30 days: No Contact w/Intl Traveler<30days: No Traveled to known affect area: No History of Present Illness HPI 89-year-old female was brought from home because the family called and said that she wanted to go to the toilet and was sitting on the potty 4 hour and a half. They were concerned about her. When EMS arrived they noticed that she was still wearing her clothes but sitting on the toilet. They reported the patient has some degree of dementia. At that time family members were not there. Patient did appear to be very anxious. Vital signs were relatively stable. She complained of back pain and hip pain to the paramedics. No history of fall as far as family knows. PFSH Past Medical History Narrative Medical List of her past medical, surgical, social and family history was reviewed from the nursing note. Arthritis: Yes Anxiety: Yes Cancer: Yes (UTERINE CA) Chemotherapy: Yes Diminished Hearing: Yes (HEARING AIDES BILAT) Genitourinary: Yes Hypertension: Yes Psychiatric: Yes Reproductive: No Respiratory: No Immunizations Current: Yes Thyroid Disease: Yes Past Surgical History Abdominal Surgery: Yes (ABD TUMOR REMOVED) Section: Yes Gynecologic Surgery: Yes (HYSTERECTOMY) Hysterectomy: Yes Social History Alcohol Use: No Tobacco Use: No Substance Use: No Allergies-Medications (Allergen,Severity, Reaction): Coded Allergies: Codeine (Verified Allergy, Severe, 02/26/16) Darvon (Verified Allergy, Severe, 02/26/16) Dyazide (Verified Allergy, Severe, 02/26/16) Penicillin (Verified Allergy, Severe, 02/26/16) Sulfa (Verified Allergy, Severe, 02/26/16) Uncoded Allergies: CHLAROMYCETIN (Allergy, Unknown, UNKNOWN, 02/26/16) Comments List of her allergies reviewed from the nursing note. Reported Meds & Prescriptions Reported Meds & Active Scripts Active Ciprofloxacin (Ciprofloxacin HCl) 250 Mg Tab 250 Mg PO BID Reported Levothyroxine (Levothyroxine Sodium) 100 Mcg Tab 100 Mcg PO DAILY Flovent Hfa 10.6 GM Inh (Fluticasone Propionate) 44 Mcg/Act Inh 2 Puff INH BID Use daily at the same time. Refresh Plus Unit-Dose Opth Drops (Carboxymethylcellulose Sodium Opth Drops) 0.5 % Drops 1 Drop EACH EYE HS Vitamin C (Ascorbic Acid) 500 Mg Cap 500 Mg PO Vitamin D-3 (Cholecalciferol) 1,000 Unit Tab 1,000 Units PO DAILY Aspirin 81 Mg Chew 81 Mg CHEW DAILY Narrative Medication List of her home medications reviewed from the nursing note. Review of Systems Except as stated in HPI: all other systems reviewed are Neg Physical Exam Narrative GENERAL: Awake, elderly, confused, anxious SKIN: Focused skin assessment warm/dry. HEAD: Atraumatic. Normocephalic. EYES: Pupils equal and round. No scleral icterus. No injection or drainage. Ophthalmoplegia which is baseline as per the paramedics by the family ENT: No nasal bleeding or discharge. Mucous membranes pink and moist. NECK: Trachea midline. No JVD. CARDIOVASCULAR: Regular rate and rhythm. No murmur appreciated. RESPIRATORY: No accessory muscle use. Clear to auscultation. Breath sounds equal bilaterally. GASTROINTESTINAL: Abdomen soft, non-tender, nondistended. Hepatic and splenic margins not palpable. MUSCULOSKELETAL: No obvious deformities. No clubbing. No cyanosis. No edema. NEUROLOGICAL: Awake and alert. No obvious cranial nerve deficits. Motor grossly within normal limits. Normal speech. PSYCHIATRIC: Anxious, poor insight and judgment Data Data Last Documented VS Orders Complete Blood Count With Diff (06/11/16 16:25) Basic Metabolic Panel (Bmp) (06/11/16 16:25) Electrocardiogram (06/11/16 ) Urinalysis - C+S If Indicated (06/11/16 16:25) ^ Straight Catheter (06/11/16 16:25) Sodium Chlor 0.9% 250 Ml Inj (Ns 250 Ml (06/11/16 16:30) Urine Culture (06/11/16 18:19) Ct Abd/Pel W/O Iv Contrast (06/11/16 ) Nitrofurantoin Monohyd Macrocr (Macrobid (06/11/16 19:00) Vascular Access Team Consult PRN (06/11/16 18:59) Ct Brain W/O Iv Contrast(Rout) (06/11/16 ) Ceftriaxone Inj (Rocephin Inj) (06/11/16 20:00) Vascular Poc Ultrasound (06/11/16 ) Admit Order (Ed Use Only) (06/11/16 20:41) Labs MDM Medical Decision Making Medical Screen Exam Complete: Yes Emergency Medical Condition: Yes Medical Record Reviewed: Yes Interpretation(s) Twelve-lead EKG was reviewed by me. Normal sinus rhythm, left axis deviation, nonspecific ST-T wave changes. Heart rate of 67 bpm. Differential Diagnosis UTI, electrolyte abnormality, dehydration Narrative Course 6:29 PM the nurses have been struggling to get an IV and blood from the patient. She has been very combative and feisty. She would not allow them to put a needle in. They spoke with her son from [place] who apparently is her power of ip technology transactions attorney. She did not want any invasive procedures done. Nurses were able to collect a urine from her voiding in a bedpan. The urine has been sent. I'll cancel the blood test. Based on patient's UTI or not patient will be discharged home with that without antibiotic. 6:51 PM the UA has blood and some WBC. She also has oxalate crystals. If she is passing a kidney stone that would explain her back pain that she's been complaining about. I have ordered a CT scan of her abdomen and pelvis to rule this out or any other cause of hematuria. Ordered Macrobid by mouth for her. Case will be signed over to the oncoming physician to follow-up on the CT. I will speak with her family and let them know about this. Procedures EKG Prior to Arrival: No Scripts Temazepam (Restoril)15 Mg Cap15 Mg PO HS PRN (INSOMNIA) #30 CAP Prov:Amarjit Asif MD 06/15/16 Benzonatate (Tessalon Perles)100 Mg Enj504 Mg PO TID 7 Days Prov:Amarjit Asif MD 06/15/16 Severo Wyman MD Jun 11, 2016 16:27 Urine Leukocyte Esterase NEG Urine RBC /hpf Urine WBC 11 /hpf Urine Squamous Epithelial 5 /hpf Cells Urine Calcium Oxalate Crystals RARE /hpf Urine Bacteria FEW /hpf Urine Mucus FEW /lpf Microscopic Urinalysis Comment CATH-CULTURE IND MDM Medical Decision Making Medical Screen Exam Complete: Yes Emergency Medical Condition: Yes Medical Record Reviewed: Yes Interpretation(s) Twelve-lead EKG was reviewed by me. Normal sinus rhythm, left axis deviation, nonspecific ST-T wave changes. Heart rate of 67 bpm. Differential Diagnosis UTI, electrolyte abnormality, dehydration Narrative Course 6:29 PM the nurses have been struggling to get an IV and blood from the patient. She has been very combative and feisty. She would not allow them to put a needle in. They spoke with her son from [place] who apparently is her power of ip technology transactions attorney. She did not want any invasive procedures done. Nurses were able to collect a urine from her voiding in a bedpan. The urine has been sent. I'll cancel the blood test. Based on patient's UTI or not patient will be discharged home with that without antibiotic. 6:51 PM the UA has blood and some WBC. She also has oxalate crystals. If she is passing a kidney stone that would explain her back pain that she's been complaining about. I have ordered a CT scan of her abdomen and pelvis to rule this out or any other cause of hematuria. Ordered Macrobid by mouth for her. Case will be signed over to the oncoming physician to follow-up on the CT. I will speak with her family and let them know about this. Procedures EKG Prior to Arrival: Severo Poon MD Jun 11, 2016 16:27
[2016-06-11] MEDS ORDERED: SODIUM CHLOR 0.9% 250 ML INJ 250 ML IV ONE (16:30)
[2016-06-11 18:47] LABS: BACTERIA, URINE FEW /hpf; BLOOD, URINE LARGE (NEG); CALCIUM OXALATE CRYSTALS,URINE RARE /hpf; GLUCOSE,URINE NEG (NEG); KETONE, URINE NEG (NEG); MUCUS URINE FEW /lpf (OCC); NITRITE,URINE NEG (NEG); PH, URINE 5.5 (5.0-8.5); SQUAMOUS EPITHELIAL CELL URINE 5 /hpf (0-5)
[2016-06-11 18:48] LABS: COMMENT (UR) CATH-CULTURE IND; CULTURE IF INDICATED CATH CULTURE IND; URINE COLOR YELLOW (YELLW/STRAW)
[2016-06-11] MEDS ORDERED: NITROFURANTOIN MONOHYD MACROCR 100 MG CAP PO ONE (19:00)
[2016-06-11 19:30] VITALS: BP 154/67; PULSE 80; RESP 16; O2SAT 98
--- NOTE | 2016-06-11 19:50 | RADRPT ---
EXAM DATE/TIME: 06/11/2016 19:23 [facility] COMPARISON: No previous studies available for comparison. INDICATIONS : Hematuria with back pain. ORAL CONTRAST: No oral contrast ingested. RADIATION DOSE: 21.85 CTDIvol (mGy) MEDICAL HISTORY : Hypertension. Uterine cancer. SURGICAL HISTORY : Hysterectomy. section.Renal transplant. ENCOUNTER: Initial ACUITY: 1 day PAIN SCALE: 4/10 LOCATION: Abdomen/pelvis TECHNIQUE: Volumetric scanning of the abdomen and pelvis was performed. Using automated exposure control and ad justment of the mA and/or kV according to patient size, radiation dose was kept as low as reasonably achievable to obtain optimal diagnostic quality images. FINDINGS: LOWER LUNGS: There are coarse interstitial changes in the lung bases posteriorly LIVER: Several small liver cysts. No biliary ductal dilatation. SPLEEN: Normal size without lesion. PANCREAS: Within normal limits. KIDNEYS: There is a slightly less than 3 cm upper pole right renal cyst. There is a 9 mm stone in the right re nal pelvis. Left kidney is unremarkable ADRENAL GLANDS: Within normal limits. VASCULAR: There is no aortic aneurysm. BOWEL/MESENTERY: The stomach, small bowel, and colon demonstrate no acute abnormality. There is no free intraperitone al air or fluid. ABDOMINAL WALL: Within normal limits. RETROPERITONEUM: Multiple surgical clips. No evidence of mass or lymphadenopathy. BLADDER: 7 mm dependent bladder stone. REPRODUCTIVE: Uterus surgically absent. No evidence of pelvic mass or free fluid. INGUINAL: There is no lymphadenopathy or hernia. MUSCULOSKELETAL: Within normal limits for patient age. CONCLUSION: Bladder and right kidney stones. Right renal cyst. Hepatic cysts. Chato Gutierrez MD on June 11, 2016 at 19:42 Board Certified Radiologist. This report was verified electronically.
[2016-06-11] MEDS ORDERED: cefTRIAXone INJ 1,000 MG in SODIUM CHLORIDE 0.9% INJ 100 ML IV ONE (20:00)
--- NOTE | 2016-06-11 20:46 | PD ---
Physical Exam Narrative The patient was initially evaluated by the previous provider and signed out to me at the beginning of my shift pending labs, UA, CT abdomen pelvis, and disposition. See her note for further details. Briefly this is an 89-year-old female with history of dementia who is brought in by ambulance from home after her family found her sitting on the bathroom toilet for over an hour and a half. Patient was complaining of back pain. Family reports that she has not been acting like herself for the last 2-3 days. She has been more aggressive than usual. On physical exam the patient is awake and alert. There are no focal neurologic findings. She is very comfortable in bed. Vital signs show heart rate 63, blood pressure 129/58, pulse ox 99% on room air , oral temp of 97.6F. UA shows cloudy urine, large occult blood, innumerable rbc's, 11 wbc's, rare calcium oxalate crystals, few bacteria. The patient was initially written for Macrobid by the previous provider, however the patient has difficulty swallowing pills. This was switched to IV Rocephin by me. CT abdomen pelvis: CONCLUSION: Bladder and right kidney stones. Right renal cyst. Hepatic cysts. When talking with the patient's family, they do not feel comfortable taking her home in her current mental state stating that they will not be able to take care of her. I contacted the patient's primary care physician Dr. Asif who has agreed to admit the patient for overnight observation. Mental status, UTI, bladder calculi. IV access was very difficult to obtain and vascular access team was consulted. Labs pending at time of admission. Data Data Last Documented VS Vital Signs Date Time Temp Pulse Resp B/P Pulse Ox O2 Delivery O2 Flow Rate FiO2 06/11/16 16:19 97 Room Air 06/11/16 16:19 97.6 63 18 129/58 Orders Complete Blood Count With Diff (06/11/16 16:25) Basic Metabolic Panel (Bmp) (06/11/16 16:25) Electrocardiogram (06/11/16 ) Urinalysis - C+S If Indicated (06/11/16 16:25) ^ Straight Catheter (06/11/16 16:25) Associate Publisher / Telemetry [email or web address] (06/11/16 16:25) Sodium Chlor 0.9% 250 Ml Inj (Ns 250 Ml (06/11/16 16:30) Urine Culture (06/11/16 18:19) Ct Abd/Pel W/O Iv Contrast (06/11/16 ) Nitrofurantoin Monohyd Macrocr (Macrobid (06/11/16 19:00) Vascular Access Team Consult PRN (06/11/16 18:59) Ct Brain W/O Iv Contrast(Rout) (06/11/16 ) Ceftriaxone Inj (Rocephin Inj) (06/11/16 20:00) Vascular Poc Ultrasound (06/11/16 ) Labs Laboratory Tests Test 06/11/16 18:19 Urine Color YELLOW Urine Turbidity CLOUDY Urine pH 5.5 Urine Specific [place] 1.024 Urine Protein 100 mg/dL Urine Glucose (UA) NEG mg/dL Urine Ketones NEG mg/dL Urine Occult Blood LARGE Urine Nitrite NEG Urine Bilirubin NEG Urine Urobilinogen 2.0 MG/DL Urine Leukocyte Esterase NEG Urine RBC /hpf Urine WBC 11 /hpf Urine Squamous Epithelial 5 /hpf Cells Urine Calcium Oxalate Crystals RARE /hpf Urine Bacteria FEW /hpf Urine Mucus FEW /lpf Microscopic Urinalysis Comment CATH-CULTURE IND MDM Supervised Visit with ANNIE: No Diagnosis Primary Impression: Altered mental status Qualified Code: R41.82 - Altered mental status, unspecified altered mental status type Additional Impressions: UTI (urinary tract infection) Qualified Code: N39.0 - Urinary tract infection with hematuria, site unspecified Bladder calculi Admitting Information Admitting Physician Requests: Observation Juvencio Macias MD Jun 11, 2016 20:45
[2016-06-11 20:57] LABS: AUTOMATED NEUTROPHIL # 2.2 TH/MM3 (1.8-7.7); BASOPHIL % 0.6 % (0.0-2.0); EOSINOPHIL # 0.1 TH/MM3 (0-0.4); EOSINOPHIL % 1.6 % (0.0-4.0); HEMATOCRIT 39.8 % (35.0-46.0); HEMO FLAGS DIFF FINAL; LYMPH % 28.5 % (9.0-44.0); LYMPHOCYTE # 1.3 TH/MM3 (1.0-4.8); MEAN CELL VOLUME 85.1 FL (80.0-100.0); MEAN CORPUSCULAR HEMOGLOBIN 28.5 PG (27.0-34.0); MEAN CORPUSCULAR HGB CONC 33.5 % (32.0-36.0); MONO % 20.4 % (0.0-8.0); NEUT % 48.9 % (16.0-70.0); PLATELET COUNT 151 TH/MM3 (150-450); RED BLOOD COUNT 4.67 MIL/MM3 (4.00-5.30); RED CELL DISTRIBUTION WIDTH 14.6 % (11.6-17.2); WHITE BLOOD COUNT 4.5 TH/MM3 (4.0-11.0)
--- NOTE | 2016-06-11 21:55 | RADRPT ---
EXAM DATE/TIME: 06/11/2016 21:43 [facility] COMPARISON: CT BRAIN W/O CONTRAST, December 21, 2015, 13:43. INDICATIONS : Altered mental status and confusion. RADIATION DOSE: 38.46 CTDIvol (mGy) MEDICAL HISTORY : Dementia. Hypertension. Osteoarthritis. Uterine cancer. SURGICAL HISTORY : Hysterectomy. Kidney transplant. ENCOUNTER: Initial ACUITY: 1 day PAIN SCALE: 2/10 LOCATION: cranial TECHNIQUE: Multiple contiguous axial images were obtained of the head. Using automated exposure control and adj ustment of the mA and/or kV according to patient size, radiation dose was kept as low as reasonably a chievable to obtain optimal diagnostic quality images. FINDINGS: CEREBRUM: The ventricles are normal for age with moderate atrophic change with sulcal and ventricular prominenc e. Periventricular white matter lucencies are again noted consistent with chronic small vessel ischem ic change. No evidence of midline shift, mass lesion, hemorrhage or acute infarction. No extra-axial fluid collections are seen. POSTERIOR FOSSA: The cerebellum and brainstem are intact. The 4th ventricle is midline. The cerebellopontine angle i s unremarkable. EXTRACRANIAL: The visualized portion of the orbits is intact. SKULL: The calvaria is intact. No evidence of skull fracture. CONCLUSION: 1. No acute hemorrhage, mass or evidence of infarction. 2. Atrophy and chronic small vessel ischemic change again noted. Huang Casper MD on June 11, 2016 at 21:53 Board Certified Radiologist. This report was verified electronically.
[2016-06-11] MEDS ORDERED: NALOXONE HCL 0.4 MG/ML AMP IV PRN (22:45)
[2016-06-11] MEDS ORDERED: ONDANSETRON HCL 4 MG/2 ML VIAL IVP PRN (22:45)
[2016-06-11] MEDS ORDERED: SODIUM CHLORIDE 0.9% FLUSH 10 ML FLUSH IV FLUSH PRN (22:45)
[2016-06-11 22:53] LABS: BICARBONATE 29.4 MEQ/L (21.0-32.0)
--- NOTE | 2016-06-11 22:55 | EKG ---
Date Performed: 06/11/2016 Time Performed: 18:19:15 PTAGE: 89 years EKG: Sinus rhythm WITH SINUS ARRHYTHMIA LEFT ANTERIOR FASCICULAR BLOCK ABNORMAL ECG PREVIOUS TRACING : 02/26/2016 22.25 No significant change from previous tracing noted. DOCTOR: Raudel Chester Interpretating Date/Time 06/11/2016 22:53:15
[2016-06-11] MEDS: HEPARIN SODIUM - SQ 10,000 UNITS/ML VIAL SQ SCH (23:27)
[2016-06-11] MEDS: CIPROFLOXACIN 200 MG PREMIX 100 ML IV SCH (23:27)
[2016-06-11] MEDS: D5-1/2 NS + KCL 20 MEQ INJ 1,000 ML IV SCH (23:52)
[2016-06-12] VITALS (7 sets, daily range): BP systolic 104–179; BP diastolic 63–87; PULSE 61–83; RESP 17–18; TEMP 96–99.1; O2SAT 96–100
[2016-06-12] MEDS: LEVOTHYROXINE SODIUM 100 MCG TAB PO SCH (06:05)
[2016-06-12] MEDS: ASPIRIN 81 MG CHEW TAB CHEW SCH (07:29)
--- NOTE | 2016-06-12 07:46 | HHI.HP ---
History of Present Illness Service INTERNAL MEDICINE Primary Care Physician AMARJIT ASIF MD Admission Diagnosis URINARY TRACT INFECTION. GROSS HEMATURIA. BLADDER CALCULI. ACUTE ENCEPHALOPATHY. Diagnoses: Review of Systems The pertinent factors for this patient are mentioned in the history of present illness. Otherwise, no other items are pertinent for admission. Past Family Social History Allergies: Coded Allergies: Codeine (Verified Allergy, Severe, 02/26/16) Darvon (Verified Allergy, Severe, 02/26/16) Dyazide (Verified Allergy, Severe, 02/26/16) Penicillin (Verified Allergy, Severe, 02/26/16) Sulfa (Verified Allergy, Severe, 02/26/16) Uncoded Allergies: CHLAROMYCETIN (Allergy, Unknown, UNKNOWN, 02/26/16) Past Medical History 1. Allergies. 2. Hypothyroidism. 3. Hyperlipidemia. 4. Advanced Osteoarthritis. 5. Chronic Kidney Disease, Stage 2. Past Surgical History 1. Hysterectomy. 2. Caesarian Section. 3. Removal of Abdominal Tumor. Family History Elderly sister with multiple medical problems. Son who lives in [place], but frequently visits multiple times a year. Social History She is a . She is a nonsmoker and nondrinker. She makes no use of recreational drugs. Physical Exam Vital Signs Vital Signs Date Time Temp Pulse Resp B/P Pulse Ox O2 Delivery O2 Flow Rate FiO2 06/12/16 04:00 97.0 66 17 117/63 100 06/12/16 01:05 67 06/12/16 00:20 96.0 61 17 104/68 100 06/11/16 19:30 80 16 154/67 98 Nasal Cannula 2 06/11/16 16:19 97 Room Air 06/11/16 16:19 97.6 63 18 129/58 99 Physical Exam GENERAL: This is well-nourished and well-developed. She is in no apparent distress. SKIN: No rashes, ecchymoses or lesions. Cool and dry. HEAD: Atraumatic. Normocephalic. No temporal or scalp tenderness. EYES: Pupils equal round and reactive. Extraocular motions intact. No scleral icterus. No injection or drainage. ENT: Nose without bleeding or drainage. Throat without erythema or exudate. Uvula midline. Airway patent. NECK: Trachea midline. No jugular venous distention or lymphadenopathy. Supple with good range of motion and nontender. CARDIOVASCULAR: Regular rate and rhythm without murmurs, gallops, or rubs. RESPIRATORY: There are a few rhonchi which partially clear with cough. Her breath sounds equal bilaterally. A few wheezes are present. GASTROINTESTINAL: Abdomen soft, non-tender, nondistended. No hepato-splenomegaly , or palpable masses. No guarding. MUSCULOSKELETAL: Extremities without clubbing, cyanosis, or edema. No calf tenderness. Negative Homans sign bilaterally. NEUROLOGICAL: Awake and alert. Cranial nerves II through XII intact. Motor and sensory grossly appear to be within normal limits. Normal speech. Laboratory Laboratory Tests Test 06/11/16 06/11/16 06/11/16 18:19 20:30 22:15 Urine Color YELLOW Urine Turbidity CLOUDY Urine pH 5.5 Urine Specific [place] 1.024 Urine Protein 100 Urine Glucose (UA) NEG Urine Ketones NEG Urine Occult Blood LARGE Urine Nitrite NEG Urine Bilirubin NEG Urine Urobilinogen 2.0 Urine Leukocyte Esterase NEG Urine RBC Urine WBC 11 Urine Squamous Epithelial 5 Cells Urine Calcium Oxalate Crystals RARE Urine Bacteria FEW Urine Mucus FEW Microscopic Urinalysis Comment CATH-CULTURE IND White Blood Count 4.5 Red Blood Count 4.67 Hemoglobin 13.3 Hematocrit 39.8 Mean Corpuscular Volume 85.1 Mean Corpuscular Hemoglobin 28.5 Mean Corpuscular Hemoglobin 33.5 Concent Red Cell Distribution Width 14.6 Platelet Count 151 Mean Platelet Volume 9.6 Neutrophils (%) (Auto) 48.9 Lymphocytes (%) (Auto) 28.5 Monocytes (%) (Auto) 20.4 Eosinophils (%) (Auto) 1.6 Basophils (%) (Auto) 0.6 Neutrophils # (Auto) 2.2 Lymphocytes # (Auto) 1.3 Monocytes # (Auto) 0.9 Eosinophils # (Auto) 0.1 Basophils # (Auto) 0.0 CBC Comment DIFF FINAL Differential Comment Sodium Level 143 Potassium Level 5.0 Chloride Level 109 Carbon Dioxide Level 29.4 Anion Gap 5 Blood Urea Nitrogen 16 Creatinine 1.21 Estimat Glomerular Filtration 51 Rate Random Glucose 84 Calcium Level 9.6 Date/Time Procedure Status Source Growth 06/11/16 18:19 Urine Culture Worksheet Urine Catheterized Urine Pending Result Diagram: 06/11/16202906/11/16 5956 Assessment and Plan Assessment and Plan ASSESSMENT 1. Urinary Naty Infection. 2. Bladder Calculus. 3. Gross Hematuria. 4. Acute Metabolic Encephalopathy. 5. Recurrent Headache. 6. Acute on Chronic Kidney Disease, Stage 2. 7. Hypothyroidism. 8. Hyperlipidemia. 9. Advanced Osteoarthritis. PLAN 1. Admit to the hospital as an Inpatient. 2. Blood and Urine Cultures. 3. Intravenous antibiotics. 4. Intravenous hydration. 5. Consultation to Urology. 6. Monitor Intake and Output. 7. DVT and PE prophylaxis. Amarjit Asif MD Jun 12, 2016 07:46
[2016-06-12] MEDS: SODIUM CHLORIDE 0.9% FLUSH 10 ML FLUSH IV FLUSH SCH ×2 (09:00→21:00)
--- NOTE | 2016-06-12 09:11 | PD.CONS ---
[facility] Service Urology Consult Requested By Reason for Consult Hematuria and dysuria Primary Care Physician Amarjit Asif MD Diagnosis: History of Present Illness 89-year-old female with dementia who was brought into the emergency room by EMS with back and hip pain. Pulmonary workup included a CT scanning of the abdomen and pelvis that demonstrated a 9 mm right renal pelvis calculus as well as an approximately 5 mm calculus involving the dependent portion of the urinary bladder. Patient also has been complaining of dysuria and sitting on the toilet for extended periods of time for several days prior to presentation to the emergency room. At the time of consultation the patient was resting comfortably in bed and denied any complaints. I reviewed the actual CT scan images and concur with the radiologist's report. Also noted on CT scan was a 3 cm right upper pole renal cyst. The left kidney was unremarkable. Review of Systems ROS Limitations: Poor Historian Past Family Social History Past Medical History Uterine cancer Dementia Arthritis Anxiety Hypertension Past Surgical History Status post hysterectomy Status post some type of abdominal surgery in the past Reported Medications Refer to EMR Allergies: Coded Allergies: Codeine (Verified Allergy, Severe, 02/26/16) Darvon (Verified Allergy, Severe, 02/26/16) Dyazide (Verified Allergy, Severe, 02/26/16) Penicillin (Verified Allergy, Severe, 02/26/16) Sulfa (Verified Allergy, Severe, 02/26/16) Uncoded Allergies: CHLAROMYCETIN (Allergy, Unknown, UNKNOWN, 02/26/16) Active Ordered Medications Refer to EMR Family History Reviewed and noncontributory Social History No history tobacco, alcohol or intravenous drug abuse Physical Exam Vital Signs Date Time Temp Pulse Resp B/P Pulse Ox O2 Delivery O2 Flow Rate FiO2 06/12/16 08:00 98.4 67 17 179/87 98 06/12/16 04:00 97.0 66 17 117/63 100 06/12/16 01:05 67 06/12/16 00:20 96.0 61 17 104/68 100 06/11/16 19:30 80 16 154/67 98 Nasal Cannula 2 06/11/16 16:19 97 Room Air 06/11/16 16:19 97.6 63 18 129/58 99 Physical Exam GENERAL: This is a well-nourished, well-developed patient, in no apparent distress. SKIN: No rashes, ecchymoses or lesions. Cool and dry. HEAD: Atraumatic. Normocephalic. No temporal or scalp tenderness. EYES: Pupils equal round and reactive. Extraocular motions intact. No scleral icterus. No injection or drainage. ENT: Nose without bleeding, purulent drainage or septal hematoma. Throat without erythema, tonsillar hypertrophy or exudate. Uvula midline. Airway patent. NECK: Trachea midline. No JVD or lymphadenopathy. Supple, nontender, no meningeal signs. GASTROINTESTINAL: Abdomen soft, non-tender, nondistended. No hepato-splenomegaly , or palpable masses. No guarding. GENITOURINARY: No CVA tenderness MUSCULOSKELETAL: Extremities without clubbing, cyanosis, or edema. No joint tenderness, effusion, or edema noted. No calf tenderness. Negative Homans sign bilaterally. NEUROLOGICAL: Appears somewhat confused. Motor and sensory grossly within normal limits. Normal speech. Laboratory Tests Test 06/11/16 06/11/16 06/11/16 18:19 20:30 22:15 Urine Color YELLOW Urine Turbidity CLOUDY Urine pH 5.5 Urine Specific [place] 1.024 Urine Protein 100 Urine Glucose (UA) NEG Urine Ketones NEG Urine Occult Blood LARGE Urine Nitrite NEG Urine Bilirubin NEG Urine Urobilinogen 2.0 Urine Leukocyte Esterase NEG Urine RBC Urine WBC 11 Urine Squamous Epithelial 5 Cells Urine Calcium Oxalate Crystals RARE Urine Bacteria FEW Urine Mucus FEW Microscopic Urinalysis Comment CATH-CULTURE IND White Blood Count 4.5 Red Blood Count 4.67 Hemoglobin 13.3 Hematocrit 39.8 Mean Corpuscular Volume 85.1 Mean Corpuscular Hemoglobin 28.5 Mean Corpuscular Hemoglobin 33.5 Concent Red Cell Distribution Width 14.6 Platelet Count 151 Mean Platelet Volume 9.6 Neutrophils (%) (Auto) 48.9 Lymphocytes (%) (Auto) 28.5 Monocytes (%) (Auto) 20.4 Eosinophils (%) (Auto) 1.6 Basophils (%) (Auto) 0.6 Neutrophils # (Auto) 2.2 Lymphocytes # (Auto) 1.3 Monocytes # (Auto) 0.9 Eosinophils # (Auto) 0.1 Basophils # (Auto) 0.0 CBC Comment DIFF FINAL Differential Comment Sodium Level 143 Potassium Level 5.0 Chloride Level 109 Carbon Dioxide Level 29.4 Anion Gap 5 Blood Urea Nitrogen 16 Creatinine 1.21 Estimat Glomerular Filtration 51 Rate Random Glucose 84 Calcium Level 9.6 Date/Time Procedure Status Source Growth 06/11/16 18:19 Urine Culture Worksheet Urine Catheterized Urine Pending Result Diagram: 06/11/16202906/11/165 Personally reviewed images: Yes Imaging Last Impressions Head CT 06/11/16 0000 Signed Impressions: Service Date/Time: May 21:43 - CONCLUSION: 1. No acute hemorrhage, mass or evidence of infarction. 2. Atrophy and chronic small vessel ischemic change again noted. Huang Casper MD Abdomen/Pelvis CT 06/11/16 0000 Signed Impressions: Service Date/Time: May 19:23 - CONCLUSION: Bladder and right kidney stones. Right renal cyst. Hepatic cysts. Chato Gutierrez MD Assessment and Plan Assessment and Plan Urologic impression: #1 lower urinary tract symptoms related to recent passage of right renal calculus (stone presently within urinary bladder). #2 secondary 9 mm nonobstructing right renal pelvis calculus. Recommendations: #1 conservative management of right renal calculus #2 anticipate expulsion of the bladder calculus within the next several days #3 office follow up in approximately 3 weeks [id number] #4 okay to discharge home from perspective and will be available as needed during present hospitalization. Denys Martinez MD Jun 12, 2016 09:11
[2016-06-12] MEDS: HEPARIN SODIUM - SQ 10,000 UNITS/ML VIAL SQ SCH ×2 (10:45→23:13)
[2016-06-12] MEDS: CIPROFLOXACIN 200 MG PREMIX 100 ML IV SCH ×2 (11:00→23:12)
[2016-06-12] MEDS ORDERED: DEXAMETHASONE SOD PHOS 4 MG/ML VIAL IV PUSH ONE (21:45)
[2016-06-12] MEDS: CARBOXYMETHYLCELL SOD 0.5% OPTH SOLN 15 ML BTL EACH EYE SCH (23:12)
[2016-06-12] MEDS: FLUTICASONE PROPIONATE 44 MCG/ACT 10.6 GM INHALER INH SCH ×2 (23:12→23:27)
[2016-06-12] MEDS: guaiFENesin/CODEINE SYRUP 200 MG/20 MG/10 ML CUP PO PRN (23:13)
[2016-06-13] VITALS (8 sets, daily range): BP systolic 125–187; BP diastolic 53–86; PULSE 51–93; RESP 16–18; TEMP 96–97.3; O2SAT 97–100
[2016-06-13] MEDS: D5-1/2 NS + KCL 20 MEQ INJ 1,000 ML IV SCH ×3 (03:32→15:39)
[2016-06-13] MEDS: LEVOTHYROXINE SODIUM 100 MCG TAB PO SCH (06:02)
--- NOTE | 2016-06-13 07:53 | HHI.PR ---
Subjective Remarks She continues to complain for headache. She feels some better for the cough. She continues to show some confusion at times. No other report of adverse changes. She appears to be tolerating the current medication regimen well. Objective - Vital Signs Date Time Temp Pulse Resp B/P Pulse Ox O2 Delivery O2 Flow Rate FiO2 06/13/16 04:40 97.3 72 18 167/81 97 06/13/16 00:15 97.1 76 17 166/77 99 06/12/16 23:00 68 06/12/16 19:50 99.1 70 17 140/70 97 06/12/16 19:44 Room Air 06/12/16 16:00 98.4 83 18 125/65 96 06/12/16 08:00 98.4 67 17 179/87 98 I/O 06/12/16 06/12/16 06/12/16 06/13/16 06/13/16 06/13/16 07:00 15:00 23:00 07:00 15:00 23:00 Intake Total 100 ml 480 ml 570 ml 581 ml Output Total 700 ml Balance 100 ml -220 ml 570 ml 581 ml Intake Oral 100 ml 480 ml 240 ml 50 ml IV Total 330 ml 531 ml Output Urine Total 700 ml # Voids 2 4 2 3 # Bowel Movements 1 1 1 1 Result Diagram: 06/11/16 2030 06/11/162214 Objective Remarks GENERAL: She is alert and appears to be in no significant distress. SKIN: Warm and dry. HEAD: Normocephalic. Atraumatic presentation. EYES: No scleral icterus. No injection or drainage. NOSE: There is bilateral mild nasal congestion. NECK: Supple, trachea midline. No JVD or lymphadenopathy. CARDIOVASCULAR: Regular rate and rhythm without murmurs, gallops, or rubs. RESPIRATORY: Breath sounds equal bilaterally. There are some rhonchi that clear with cough. No accessory muscle use. GASTROINTESTINAL: Abdomen soft, non-tender, nondistended. MUSCULOSKELETAL: Good range of motion. No cyanosis, or edema. BACK: Nontender without obvious deformity. No CVA tenderness. NEUROLOGICAL: No focal motor deficits to exam. A/P Assessment and Plan ASSESSMENT 1. Urinary Tract Infection. 2. Bladder Calculi. 3. Gross Hematuria. 4. Acute Metabolic Encephalopathy. 5. Recurrent Headache. 6. Acute on Chronic Kidney Disease, Stage 2. 7. Hypothyroidism. 8. Hyperlipidemia. 9. Advanced Osteoarthritis. 10. Acute Bronchitis with Mild Bronchospasm, on admission. PLAN 1. Blood and Urine Cultures-results are pending. 2. Continue with intravenous antibiotics. 3. Continue with intravenous hydration. 4. Pulse dosing of intravenous corticosteroids. 5. Urology disposition is noted. 6. CT Scan of the Brain to be done. 7. DVT and PE prophylaxis. Amarjit Asif MD Jun 13, 2016 07:53
[2016-06-13] MEDS: guaiFENesin/CODEINE SYRUP 200 MG/20 MG/10 ML CUP PO PRN ×2 (08:18→15:35)
[2016-06-13] MEDS: ASPIRIN 81 MG CHEW TAB CHEW SCH (08:19)
[2016-06-13] MEDS: SODIUM CHLORIDE 0.9% FLUSH 10 ML FLUSH IV FLUSH SCH ×2 (08:19→21:58)
[2016-06-13] MEDS: FLUTICASONE PROPIONATE 44 MCG/ACT 10.6 GM INHALER INH SCH ×2 (08:19→22:04)
--- NOTE | 2016-06-13 08:52 | RADRPT ---
EXAM DATE/TIME: 06/13/2016 08:39 [place] COMPARISON: CT BRAIN W/O CONTRAST, June 11, 2016, 21:43. INDICATIONS : Cephalgia for three days. RADIATION DOSE: 47.23 CTDIvol (mGy) MEDICAL HISTORY : Dementia. Uterine cancer SURGICAL HISTORY : None. ENCOUNTER: Initial ACUITY: 3 days PAIN SCALE: 7/10 LOCATION: Bilateral head TECHNIQUE: Multiple contiguous axial images were obtained of the head. Using automated exposure control and adj ustment of the mA and/or kV according to patient size, radiation dose was kept as low as reasonably a chievable to obtain optimal diagnostic quality images. FINDINGS: There is no evidence for intracranial hemorrhage, mass effect, mass lesions, or edema. The visualize d bony structures appear intact. Moderate degree of brain atrophy is seen. Moderate periventricular white matter changes are seen nonspecific mostly consistent with chronic small vessel ischemic change s. There are no signs of acute infarction for technique. CONCLUSION: Chronic and small vessel ischemic changes without any evidence for acute hemorrhage o r mass effect. Gabriela Valdez MD on June 13, 2016 at 8:48 Board Certified Radiologist. This report was verified electronically.
[2016-06-13] MEDS: HEPARIN SODIUM - SQ 10,000 UNITS/ML VIAL SQ SCH ×3 (10:45→22:32)
[2016-06-13] MEDS: CIPROFLOXACIN 200 MG PREMIX 100 ML IV SCH ×2 (12:35→22:32)
[2016-06-13] MEDS ORDERED: DEXAMETHASONE SOD PHOS 4 MG/ML VIAL IV PUSH ONE (15:00)
[2016-06-13] MEDS: CARBOXYMETHYLCELL SOD 0.5% OPTH SOLN 15 ML BTL EACH EYE SCH (22:04)
[2016-06-13] MEDS ORDERED: cloNIDine HCL 0.2 MG TAB PO SCH (23:45)
[2016-06-14] VITALS (7 sets, daily range): BP systolic 134–183; BP diastolic 58–84; PULSE 56–96; RESP 16–17; TEMP 96–98.3; O2SAT 94–99
[2016-06-14] MEDS: D5-1/2 NS + KCL 20 MEQ INJ 1,000 ML IV SCH ×2 (06:08→17:34)
[2016-06-14] MEDS: HEPARIN SODIUM - SQ 10,000 UNITS/ML VIAL SQ SCH ×2 (07:08→22:45)
[2016-06-14] MEDS: LEVOTHYROXINE SODIUM 100 MCG TAB PO SCH (07:39)
[2016-06-14] MEDS: ASPIRIN 81 MG CHEW TAB CHEW SCH (07:47)
[2016-06-14] MEDS: FLUTICASONE PROPIONATE 44 MCG/ACT 10.6 GM INHALER INH SCH ×2 (07:48→21:22)
[2016-06-14] MEDS: SODIUM CHLORIDE 0.9% FLUSH 10 ML FLUSH IV FLUSH SCH ×2 (07:48→21:00)
[2016-06-14] MEDS: CIPROFLOXACIN 200 MG PREMIX 100 ML IV SCH (11:18)
[2016-06-14] MEDS: guaiFENesin/CODEINE SYRUP 200 MG/20 MG/10 ML CUP PO PRN ×2 (12:00→17:31)
--- NOTE | 2016-06-14 12:37 | HHI.PR ---
Subjective Remarks She is lying in bed with her son from [place] at her bedside. There is no new adverse complaints voiced except not sleeping very well. She is not coughing as much as before. She is tolerating the intravenous antibiotics well. Objective - Vital Signs Date Time Temp Pulse Resp B/P Pulse Ox O2 Delivery O2 Flow Rate FiO2 06/14/16 11:19 96.9 61 16 158/64 94 06/14/16 08:00 96.7 68 16 183/67 99 06/14/16 07:23 65 06/14/16 04:11 96.7 56 17 158/72 99 06/14/16 00:00 96.0 96 17 179/84 97 06/13/16 19:30 96.1 93 17 187/86 98 06/13/16 18:06 51 06/13/16 18:01 96.5 70 16 162/67 98 I/O 06/13/16 06/13/16 06/13/16 06/14/16 06/14/16 06/14/16 07:00 15:00 23:00 07:00 15:00 23:00 Intake Total 581 ml 480 ml 1580 ml 50 ml 986 ml Balance 581 ml 480 ml 1580 ml 50 ml 986 ml Intake Oral 50 ml 480 ml 240 ml 50 ml IV Total 531 ml 1340 ml 986 ml # Voids 3 3 2 3 # Bowel Movements 1 0 1 0 Result Diagram: 06/11/16202906/11/162214 Objective Remarks GENERAL: Alert with minimal confusion. SKIN: Warm and dry. HEAD: Normocephalic. EYES: No scleral icterus. No injection or drainage. NECK: Supple, trachea midline. No jugular venous distention or lymphadenopathy. CARDIOVASCULAR: Regular rate and rhythm without murmurs, gallops, or rubs. RESPIRATORY: Breath sounds equal bilaterally. No accessory muscle use. GASTROINTESTINAL: Abdomen soft, non-tender, nondistended. MUSCULOSKELETAL: No cyanosis, or edema. BACK: Nontender without obvious deformity. No sacral edema. No costovertebral angle tenderness. A/P Assessment and Plan ASSESSMENT 1. Urinary Naty Infection, on admission. 2. Bladder Calculus. 3. Gross Hematuria. 4. Acute Metabolic Encephalopathy. 5. Recurrent Headache. 6. Acute on Chronic Kidney Disease, Stage 2. 7. Hypothyroidism. 8. Hyperlipidemia. 9. Advanced Osteoarthritis. PLAN 1. Will continue with the current therapeutics. 2. Urology disposition is appreciated. 3. Intravenous antibiotics to convert to oral. 4. Discharge Planning for tomorrow, if stable. 5. DVT and PE prophylaxis. Amarjit Asif MD Jun 14, 2016 12:37 Amarjit Asif MD Jun 14, 2016 12:37
[2016-06-14] MEDS ORDERED: TEMAZEPAM 15 MG CAP PO PRN (16:45)
[2016-06-14] MEDS: BENZONATATE 100 MG CAP PO SCH (17:31)
[2016-06-14] MEDS: CARBOXYMETHYLCELL SOD 0.5% OPTH SOLN 15 ML BTL EACH EYE SCH (21:22)
[2016-06-14] MEDS: CIPROFLOXACIN 250 MG TAB PO SCH (23:09)
[2016-06-15] VITALS: BP 146/59; PULSE 60; RESP 17; TEMP 96.1; O2SAT 97
[2016-06-15] MEDS: LEVOTHYROXINE SODIUM 100 MCG TAB PO SCH (06:30)
[2016-06-15 08:00] VITALS: BP 164/73; PULSE 80; RESP 18; TEMP 95.3; O2SAT 97
[2016-06-15] MEDS: CIPROFLOXACIN 250 MG TAB PO SCH (08:29)
[2016-06-15] MEDS: ASPIRIN 81 MG CHEW TAB CHEW SCH (08:29)
[2016-06-15] MEDS: BENZONATATE 100 MG CAP PO SCH (08:30)
[2016-06-15] MEDS: SODIUM CHLORIDE 0.9% FLUSH 10 ML FLUSH IV FLUSH SCH (09:00)
[2016-06-15] MEDS: HEPARIN SODIUM - SQ 10,000 UNITS/ML VIAL SQ SCH (10:45)
[2016-06-15 12:00] VITALS: BP 113/55; PULSE 73; RESP 18; TEMP 95; O2SAT 92
--- NOTE | 2016-06-15 13:00 | HHI.PR ---
Subjective Remarks She is sitting up in the chair and eating lunch at this time. Her son does not report any major adverse changes. He is interested in her going to a rehab facility to improve her overall status. Objective - Vital Signs Date Time Temp Pulse Resp B/P Pulse Ox O2 Delivery O2 Flow Rate FiO2 06/15/16 08:00 95.3 80 18 164/73 97 06/15/16 07:40 Room Air 06/15/16 00:00 96.1 60 17 146/59 97 06/14/16 21:10 98.3 69 17 134/58 98 06/14/16 17:27 96.1 59 16 142/62 97 I/O 06/14/16 06/14/16 06/14/16 06/15/16 06/15/16 06/15/16 07:00 15:00 23:00 07:00 15:00 23:00 Intake Total 50 ml 986 ml 1016 ml 120 ml Balance 50 ml 986 ml 1016 ml 120 ml Intake Oral 50 ml 240 ml 120 ml IV Total 986 ml 776 ml # Voids 3 0 2 # Bowel Movements 0 0 0 Result Diagram: 06/11/16202906/11/162214 Objective Remarks GENERAL: Alert. Occasional mild confusion. SKIN: Warm and dry. HEAD: Normocephalic. Atraumatic. EYES: No scleral icterus. No injection or drainage. NECK: Supple, trachea midline. No JVD or lymphadenopathy. CARDIOVASCULAR: Regular rate and rhythm without murmurs, gallops, or rubs. RESPIRATORY: Breath sounds equal bilaterally. No accessory muscle use. GASTROINTESTINAL: Abdomen soft, non-tender, nondistended. MUSCULOSKELETAL: No cyanosis, or edema. BACK: Nontender without obvious deformity. No CVA tenderness. A/P Assessment and Plan ASSESSMENT 1. Urinary Naty Infection, on admission. 2. Bladder Calculus. 3. Gross Hematuria. 4. Acute Metabolic Encephalopathy. 5. Recurrent Headache. 6. Acute on Chronic Kidney Disease, Stage 2. 7. Hypothyroidism. 8. Hyperlipidemia. 9. Advanced Osteoarthritis. PLAN 1. Will continue with the current therapeutics. 2. Urology disposition is appreciated. 3. Intravenous antibiotics are converted to oral. 4. Discharge Planning for her to go to a Rehab Center. 5. DVT and PE prophylaxis. Amarjit Asif MD Jun 15, 2016 13:00
[2016-06-15] MEDS ORDERED: REST15CA PO (13:07)
[2016-06-15] MEDS ORDERED: BENZ100 PO (13:07)
[2016-06-15 16:00] VITALS: BP 108/58; PULSE 66; RESP 17; TEMP 97.3; O2SAT 98
--- NOTE | 2016-08-12 11:31 | MD ---
cc: MAURO ASIF M.D. ADMISSION DATE: 06/11/2016 DISCHARGE DATE: 06/15/2016 ADMISSION DIAGNOSIS Blood in urine, change in mental status. DISCHARGE DIAGNOSIS 1. Urinary tract infection on admission. 2. Bladder calculus 3. Gross hematuria 4. Acute metabolic encephalopathy 5. Recurrent headaches 6. 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 Hypothyroidism 8. Hyperlipidemia 9. Advanced osteoarthritis BRIEF HISTORY The patient is an 89-year-old female who had a presentation whereby she was noticed with changes from her usual mentation. The patient also was not able to control her urine to the degree that she normally does. Due to the changes that were happening, the patient was evaluated found with passage of some blood in the urine. Secondary to the overall presentation, she was brought to [facility] emergency department for evaluation. She was found on presentation with a urinary tract infection, hematuria and encephalopathy. The patient was admitted to the hospital in this regard. PERTINENT PHYSICAL FINDINGS GENERAL: The patient was alert but and in a somewhat confused state. HEENT: No acute findings were noted to exam. HEART: Regular rhythm with S1 and S2 distinct. LUNGS: Appear clear to auscultation bilaterally. ABDOMEN: Soft. The exam was nontender. Bowel sounds were present. EXTREMITIES: Good range of motion with hypertrophic changes of both knees and crepitation on range of motion there as well. She had very mild peripheral edema for the distal lower legs. NEUROLOGIC: The patient showed a somewhat confused status otherwise no lateralizing focal motor deficits to exam. HOSPITAL COURSE The patient was admitted to the hospital as an inpatient. Blood and urine cultures were obtained. She was started on intravenous hydration with electrolyte repletion. The patient also was given intravenous antibiotic therapy. Consultation was made to Urology regarding the presentation. She had close monitoring of her intake and output status as well as having prophylaxis for deep vein thrombosis and pulmonary embolism. The patient was seen by Urology and the disposition was that the patient would get conservative management regarding the right renal calculus. The urine was to be strained and the patient will be monitored in this regard. She was continued with use of intravenous antibiotic therapy and by the third hospitalization day, the patient had shown some improvement with regard to her mental status. Her activity level was increased with the use of physical therapy. On 06/15/2016, the patient had shown definite improvement for overall status with good oral intake of food and drink and mobility per physical therapy. It was discussed with the son about discharge planning for the patient. Disposition was given that the patient would benefit from going to a rehabilitation center. Consultation made to case management in this regard. Plans were made and the patient was for discharge on 06/15/2016 to a rehabilitation center. DISCHARGE DISPOSITION Diet, the patient would be put on a general healthful diet. MEDICATIONS 1. Ascorbic acid 500 mg daily 2. Aspirin 81 mg daily 3. Benzonatate 100 mg t.i.d. for 7-day course 4. Carboxymethylcellulose sodium ophthalmic solution one drop to both eyes q.h.s. 5. Vitamin D3 1000 IU daily 6. Fluticasone HFA two puffs b.i.d. 7. Levothyroxine 0.1 mg daily 8. Temazepam 15 mg q.h.s. 9. Ciprofloxacin 250 mg b.i.d. for a one week course. ACTIVITY The patient activity will be as per physical therapy. FOLLOWUP This patient will be discharged to a rehabilitation center. She will follow up with Dr. Asif one week after discharge from the rehab center. The patient also will follow up with urology as directed by them. MD FORTINO Yo/TIANA /8:33 AM /11:24 AM
== END 2016-06-15 17:41 | DRG 689 ==
LOC: NEPE 16:06 → OBSVTOIN 20:43 → NEDA 20:43 → N06A 23:31
PROVIDERS: ADMIT Internal Medicine; ATTEND Internal Medicine
DX: N39.0 Urinary tract infection, site not specified (principal); G93.41 Metabolic encephalopathy; N20.0 Calculus of kidney; N28.1 Cyst of kidney, acquired; R31.0 Gross hematuria; F03.90 Unspecified dementia, unspecified severity, without behavioral disturbance, psychotic disturbance, mood disturbance, and anxiety; J20.9 Acute bronchitis, unspecified; N21.0 Calculus in bladder; R51 Headache; I12.9 Hypertensive chronic kidney disease with stage 1 through stage 4 chronic kidney disease, or unspecified chronic kidney disease; N18.2 Chronic kidney disease, stage 2 (mild); N28.9 Disorder of kidney and ureter, unspecified; E03.9 Hypothyroidism, unspecified; E78.5 Hyperlipidemia, unspecified; M19.90 Unspecified osteoarthritis, unspecified site; H91.90 Unspecified hearing loss, unspecified ear; Z85.42 Personal history of malignant neoplasm of other parts of uterus
CPT/HCPCS: 70450; 74176; 76937; 80048; 81001; 85025; 87086; 93005; J0696; J0744; J1100; J1644; J3480; J7050

== ENCOUNTER 2016-09-12 11:52 | Inpatient (IN) | payer MEDICARE, BC, OTHER ==
[~2016-09-12] VITALS: Ht 157.5 cm; Wt 70.6 kg
[2016-09-12] VITALS (9 sets, daily range): BP systolic 154–192; BP diastolic 73–120; PULSE 70–76; RESP 14–22; TEMP 97.6–97.9; O2SAT 99
[~2016-09-12 11:52] MED LIST changes: +BENZ100 PO; -FLUT1SPR9 EACH NARE; +REST15CA PO
[2016-09-12] MEDS ORDERED: SODIUM CHLORIDE 0.9% FLUSH 5 ML FLUSH IV FLUSH PRN (12:30)
--- NOTE | 2016-09-12 12:34 | PD ---
HPI Chief Complaint: altered mental status Time Seen by Provider: 12:30 Travel History International Travel<30 days: No Contact w/Intl Traveler<30days: No Traveled to known affect area: No History of Present Illness HPI 89-year-old demented alf patient with history of recent UTI, presents to the ER today brought in by EMS because facility states that she is more disoriented than usual. Patient is currently complaining about a left leg weakness. She otherwise denies any chest pains, trouble breathing, or other complaints. Modifying Factors: None Associated Signs & Symptoms: Altered mental status, left leg weakness Risk Factors: Elderly alf patient, demented PFSH Past Medical History Arthritis: Yes (osteoarthritis) Anxiety: Yes Cancer: Yes (uterine) Chemotherapy: Yes Dementia: Yes (very altered) Diminished Hearing: Yes (HEARING AIDES BILAT) Genitourinary: Yes Hypertension: Yes Psychiatric: Yes Reproductive: No Respiratory: No Immunizations Current: Yes Thyroid Disease: Yes Past Surgical History Abdominal Surgery: Yes (ABD TUMOR REMOVED) Section: Yes Gynecologic Surgery: Yes (HYSTERECTOMY) Hysterectomy: Yes Social History Alcohol Use: No Tobacco Use: No Substance Use: No Allergies-Medications (Allergen,Severity, Reaction): Coded Allergies: Codeine (Verified Allergy, Severe, 09/12/16) Darvon (Verified Allergy, Severe, 09/12/16) Dyazide (Verified Allergy, Severe, 09/12/16) Penicillin (Verified Allergy, Severe, 09/12/16) Sulfa (Verified Allergy, Severe, 09/12/16) Uncoded Allergies: CHLAROMYCETIN (Allergy, Unknown, UNKNOWN, 02/26/16) Reported Meds & Prescriptions Reported Meds & Active Scripts Active Restoril (Temazepam) 15 Mg Cap 15 Mg PO HS PRN Reported Flonase Nasal [place] (Fluticasone Nasal [place]) 50 Mcg/Act [place] 1 Spr EACH NARE DAILY PRN Vitamin D3 (Cholecalciferol) 1,000 Unit Tab 1,000 Units PO DAILY@1600 C 500 (Ascorbic Acid) 500 Mg Tab 500 Mg PO DAILY@1600 Levothyroxine (Levothyroxine Sodium) 100 Mcg Tab 100 Mcg PO DAILY Refresh Plus Unit-Dose 0.5% Opth (Carboxymethylcellulose Sodium 0.5% Opth) 0.5% Drops 1 Drop EACH EYE HS Aspirin 81 Mg Chew 81 Mg CHEW DAILY Review of Systems ROS Limitations: Altered Mental Status Physical Exam Narrative GENERAL: Well-developed elderly -Burmese female patient who is currently awake, alert, and oriented. SKIN: Focused skin assessment warm/dry. HEAD: Atraumatic. Normocephalic. EYES: Pupils equal and round. No scleral icterus. No injection or drainage. ENT: No nasal bleeding or discharge. Mucous membranes pink and moist. NECK: Trachea midline. No JVD. CARDIOVASCULAR: Regular rate and rhythm. No murmur appreciated. RESPIRATORY: No accessory muscle use. Clear to auscultation. Breath sounds equal bilaterally. GASTROINTESTINAL: Abdomen soft, non-tender, nondistended. Hepatic and splenic margins not palpable. MUSCULOSKELETAL: No obvious deformities. No clubbing. No cyanosis. No edema. NEUROLOGICAL: Awake and alert, not oriented. No obvious cranial nerve deficits. Left leg weakness. Normal speech. PSYCHIATRIC: Poor insight and judgment, not oriented. Data Data Last Documented VS Vital Signs Date Time Temp Pulse Resp B/P Pulse Ox O2 Delivery O2 Flow Rate FiO2 09/12/16 16:08 73 14 181/96 09/12/16 14:38 99 Room Air 09/12/16 12:36 97.6 Orders Electrocardiogram (09/12/16 12:30) Complete Blood Count With Diff (09/12/16 12:30) Comprehensive Metabolic Panel (09/12/16 12:30) Creatine Kinase (Cpk) (09/12/16 12:30) Prothrombin Time / Inr (Pt) (09/12/16 12:30) Act Partial Throm Time (Ptt) (09/12/16 12:30) Troponin I (09/12/16 12:30) Urinalysis - C+S If Indicated (09/12/16 12:30) Lactic Acid Sepsis Protocol (09/12/16 12:30) Blood Culture (09/12/16 12:30) Chest, Single Ap (09/12/16 12:30) Ct Brain W/O Iv Contrast(Rout) (09/12/16 12:30) Blood Glucose (09/12/16 12:30) Ecg Monitoring (09/12/16 12:30) Iv Access Insert/Monitor (09/12/16 12:30) Oximetry (09/12/16 12:30) Urinary Catheter Insert/Apply (09/12/16 12:30) Sodium Chloride 0.9% Flush (Ns Flush) (09/12/16 12:30) Urine Culture (09/12/16 15:40) Cefepime Inj (Maxipime Inj) (09/12/16 16:26) Aspirin (Aspirin) (09/12/16 16:30) Labs Laboratory Tests Test 09/12/16 09/12/16 09/12/16 14:37 15:25 15:40 Sodium Level 141 MEQ/L Potassium Level 3.9 MEQ/L Chloride Level 109 MEQ/L Carbon Dioxide Level 27.7 MEQ/L Anion Gap 4 MEQ/L Blood Urea Nitrogen 16 MG/DL Creatinine 1.15 MG/DL Estimat Glomerular Filtration 54 ML/MIN Rate Random Glucose 86 MG/DL Lactic Acid Level 1.0 mmol/L Calcium Level 9.8 MG/DL Total Bilirubin 0.6 MG/DL Aspartate Amino Transf 31 U/L (AST/SGOT) Alanine Aminotransferase 35 U/L (ALT/SGPT) Alkaline Phosphatase 99 U/L Total Creatine Kinase 53 U/L Troponin I LESS THAN 0.02 NG/ML Total Protein 6.9 GM/DL Albumin 3.6 GM/DL White Blood Count 4.4 TH/MM3 Red Blood Count 5.04 MIL/MM3 Hemoglobin 14.2 GM/DL Hematocrit 44.1 % Mean Corpuscular Volume 87.7 FL Mean Corpuscular Hemoglobin 28.1 PG Mean Corpuscular Hemoglobin 32.1 % Concent Red Cell Distribution Width 14.9 % Platelet Count 174 TH/MM3 Mean Platelet Volume 8.8 FL Neutrophils (%) (Auto) 56.8 % Lymphocytes (%) (Auto) 30.5 % Monocytes (%) (Auto) 10.5 % Eosinophils (%) (Auto) 1.4 % Basophils (%) (Auto) 0.8 % Neutrophils # (Auto) 2.5 TH/MM3 Lymphocytes # (Auto) 1.3 TH/MM3 Monocytes # (Auto) 0.5 TH/MM3 Eosinophils # (Auto) 0.1 TH/MM3 Basophils # (Auto) 0.0 TH/MM3 CBC Comment DIFF FINAL Differential Comment Prothrombin Time 11.6 SEC Prothromb Time International 1.0 RATIO Ratio Activated Partial 21.7 SEC Thromboplast Time Urine Color YELLOW Urine Turbidity HAZY Urine pH 8.0 Urine Specific [place] 1.013 Urine Protein 30 mg/dL Urine Glucose (UA) NEG mg/dL Urine Ketones NEG mg/dL Urine Occult Blood MOD Urine Nitrite NEG Urine Bilirubin NEG Urine Urobilinogen LESS THAN 2.0 MG/DL Urine Leukocyte Esterase LARGE Urine RBC 99 /hpf Urine WBC 133 /hpf Urine WBC Clumps FEW Urine Squamous Epithelial 1 /hpf Cells Microscopic Urinalysis Comment CATH-CULTURE IND MDM Medical Decision Making Medical Screen Exam Complete: Yes Emergency Medical Condition: Yes Medical Record Reviewed: Yes Interpretation(s) EKG shows NSR, no ST elevation or depression, and no arrhythmias. No significant T-wave inversions. Laboratory Tests Test 09/12/16 09/12/16 09/12/16 14:37 15:25 15:40 Chloride Level 109 MEQ/L (98-107) Anion Gap 4 MEQ/L (5-15) Creatinine 1.15 MG/DL (0.50-1.00) Estimat Glomerular Filtration 54 ML/MIN (>89) Rate Troponin I LESS THAN 0.02 NG/ML (0.02-0.05) Monocytes (%) (Auto) 10.5 % (0.0-8.0) Activated Partial 21.7 SEC Thromboplast Time (24.3-30.1) Urine Turbidity HAZY (CLEAR) Urine Protein 30 mg/dL (NEG-TRACE) Urine Occult Blood MOD (NEG) Urine Leukocyte Esterase LARGE (NEG) Urine RBC 99 /hpf (0-3) Urine WBC 133 /hpf (0-5) Urine WBC Clumps FEW (NONE) Last [address] 09/12/16 1230 Signed Impressions: Service Date/Time: Monday, September 12, 2016 15:05 - CONCLUSION: Chronic and small vessel ischemic changes without any evidence for acute hemorrhage or mass effect. Gabriela Valdez MD Chest X-Ray 09/12/16 1230 Signed Impressions: Service Date/Time: Monday, September 12, 2016 12:37 - CONCLUSION: No acute cardiopulmonary disease. Gabriela Valdez MD Differential Diagnosis Acute CVA versus metabolic issues versus dehydration versus sepsis versus UTI Narrative Course CAT scan is unremarkable for any signs of acute intracranial processes. While she was in the ER, she started to have better movement of her left leg. Her lab work shows a UTI. IV antibiotics were initiated aspirin was initiated in the ER. At this point, my plan would be to admit the patient for further evaluation and treatment. Case was discussed with Dr. Asif who agrees to admit the patient. Diagnosis Primary Impression: UTI (urinary tract infection) Additional Impressions: Altered mental status TIA (transient ischemic attack) Admitting Information Admitting Physician Requests: Mariam Lynn MD Sep 12, 2016 12:34
--- NOTE | 2016-09-12 13:25 | RADRPT ---
EXAM DATE/TIME: 09/12/2016 12:37 [facility] COMPARISON: CHEST SINGLE AP, February 26, 2016, 21:55. INDICATIONS : Shortness of breath. MEDICAL HISTORY : Dementia. Uterine cancer SURGICAL HISTORY : None. ENCOUNTER: Initial ACUITY: 1 day PAIN SCORE: Non-responsive. LOCATION: Bilateral chest FINDINGS: The lungs are clear without infiltrate, nodule, or mass. There is no appreciable pleural effusion fo r technique. Heart and mediastinum are unremarkable. CONCLUSION: No acute cardiopulmonary disease. Gabriela Valdez MD on September 12, 2016 at 13:18 Board Certified Radiologist. This report was verified electronically.
[2016-09-12 15:28] LABS: ANION GAP 4 MEQ/L (5-15); BICARBONATE 27.7 MEQ/L (21.0-32.0); BLOOD UREA NITROGEN 16 MG/DL (7-18); CHLORIDE 109 MEQ/L (98-107); GLOMERULAR FILTRATION RATE 54 ML/MIN (>89); POTASSIUM 3.9 MEQ/L (3.5-5.1); SODIUM (NA) 141 MEQ/L (136-145)
[2016-09-12 15:29] LABS: ALT (GPT) 35 U/L (10-53); AST (GOT) 31 U/L (15-37)
--- NOTE | 2016-09-12 15:33 | RADRPT ---
EXAM DATE/TIME: 09/12/2016 15:05 [facility] COMPARISON: CT BRAIN W/O CONTRAST, June 13, 2016, 8:39. INDICATIONS : Altered mental status RADIATION DOSE: 56.38 CTDIvol (mGy) MEDICAL HISTORY : Dementia. Hypertension. SURGICAL HISTORY : Hysterectomy. ENCOUNTER: Initial ACUITY: 1 day PAIN SCALE: 0/10 LOCATION: cranial TECHNIQUE: Multiple contiguous axial images were obtained of the head. Using automated exposure control and adj ustment of the mA and/or kV according to patient size, radiation dose was kept as low as reasonably a chievable to obtain optimal diagnostic quality images. DICOM format image data is available electro nically for review and comparison. FINDINGS: There is no evidence for intracranial hemorrhage, mass effect, mass lesions, or edema. The visualize d bony structures appear intact. Moderate degree of brain atrophy is seen. Moderate periventricular white matter changes are seen nonspecific mostly consistent with chronic small vessel ischemic change s. There are no signs of acute infarction for technique. CONCLUSION: Chronic and small vessel ischemic changes without any evidence for acute hemorrhage o r mass effect. Gabriela Valdez MD on September 12, 2016 at 15:30 Board Certified Radiologist. This report was verified electronically.
[2016-09-12 15:41] LABS: ALKALINE PHOSPHATASE 99 U/L (45-117); TOTAL BILIRUBIN ADULT 0.6 MG/DL (0.2-1.0)
[2016-09-12 15:43] LABS: CREATINE KINASE 53 U/L (26-192)
[2016-09-12] MEDS ORDERED: VITA100064 PO (15:47)
[2016-09-12] MEDS ORDERED: C 50TAB PO (15:47)
[2016-09-12] MEDS ORDERED: FLUT1SPR5 EACH NARE (15:48)
[2016-09-12 15:51] LABS: AUTOMATED NEUTROPHIL # 2.5 TH/MM3 (1.8-7.7); BASOPHIL % 0.8 % (0.0-2.0); EOSINOPHIL # 0.1 TH/MM3 (0-0.4); EOSINOPHIL % 1.4 % (0.0-4.0); HEMATOCRIT 44.1 % (35.0-46.0); HEMO FLAGS DIFF FINAL; LYMPH % 30.5 % (9.0-44.0); LYMPHOCYTE # 1.3 TH/MM3 (1.0-4.8); MEAN CELL VOLUME 87.7 FL (80.0-100.0); MEAN CORPUSCULAR HEMOGLOBIN 28.1 PG (27.0-34.0); MEAN CORPUSCULAR HGB CONC 32.1 % (32.0-36.0); MONO % 10.5 % (0.0-8.0); NEUT % 56.8 % (16.0-70.0); PLATELET COUNT 174 TH/MM3 (150-450); RED BLOOD COUNT 5.04 MIL/MM3 (4.00-5.30); RED CELL DISTRIBUTION WIDTH 14.9 % (11.6-17.2); WHITE BLOOD COUNT 4.4 TH/MM3 (4.0-11.0)
[2016-09-12 16:01] LABS: APTT (PATIENT) 21.7 SEC (24.3-30.1); PROTHROMBIN TIME - PATIENT 11.6 SEC (9.8-11.6)
[2016-09-12 16:16] LABS: BLOOD, URINE MOD (NEG); GLUCOSE,URINE NEG (NEG); KETONE, URINE NEG (NEG); NITRITE,URINE NEG (NEG); SQUAMOUS EPITHELIAL CELL URINE 1 /hpf (0-5); URINE COLOR YELLOW (YELLW/STRAW)
[2016-09-12 16:20] LABS: COMMENT (UR) CATH-CULTURE IND; CULTURE IF INDICATED CATH CULTURE IND
[2016-09-12] MEDS ORDERED: CEFEPIME INJ 2,000 MG in SODIUM CHLORIDE 0.9% INJ 100 ML IV STA (16:26)
[2016-09-12] MEDS ORDERED: ASPIRIN 325 MG TAB PO ONE (16:30)
[2016-09-12] MEDS ORDERED: SENNOSIDES 8.6 MG TAB PO PRN (17:00)
[2016-09-12] MEDS ORDERED: LACTULOSE SYRUP 20 GM/30 ML CUP PO PRN (17:00)
[2016-09-12] MEDS ORDERED: MAGNESIUM HYDROXIDE SUSP 30 ML CUP PO PRN (17:00)
[2016-09-12] MEDS ORDERED: NALOXONE HCL 0.4 MG/ML AMP IV PRN (17:00)
[2016-09-12] MEDS ORDERED: SODIUM CHLORIDE 0.9% FLUSH 10 ML FLUSH IV FLUSH PRN (17:00)
[2016-09-12] MEDS ORDERED: BISACODYL 10 MG SUPP RECTAL PRN (17:00)
[2016-09-12] MEDS ORDERED: ONDANSETRON HCL 4 MG/2 ML VIAL IVP PRN (17:00)
[2016-09-12] MEDS ORDERED: TEMAZEPAM 15 MG CAP PO PRN ×2 (17:00)
[2016-09-12] MEDS ORDERED: ACETAMINOPHEN 325 MG TAB PO PRN (17:00)
[2016-09-12] MEDS ORDERED: CIPROFLOXACIN 200 MG PREMIX 100 ML IV SCH (18:00)
[2016-09-12] MEDS: ENOXAPARIN SODIUM 30 MG/0.3 ML SYRINGE SQ SCH (18:26)
--- NOTE | 2016-09-12 19:30 | HHI.HP ---
History of Present Illness Service INTERNAL MEDICINE Primary Care Physician AMARJIT ASIF M.D. Admission Diagnosis ACUTE METABOLIC ENCEPHALOPATHY. URINARY TRACT INFECTION. Diagnoses: History of Present Illness This patient is an 89 year old female who has a history of having somewhat erratic behavior this morning. She appears confused at times and reportedly had difficulty for the movement of her left lower limb. This was not completely verified as she had the appearance of being with some degree of movement at times. There is denial of any fever, chills or complaint of severe headache. She has not had any recent travel, infection, illness or trauma. She has been with regular use of her usual medications. Due to the adverse changes, she was transported to the [facility] Emergency Room for evaluation. She is found with the presentation of a severe urinary tract infection and there was the question of possible transient ischemic attack for the reported deficits of the left lower limb. She is admitted to the hospital to further assess and treat. Review of Systems This patient is not able to yield this information to a reliable degree at this time. Past Family Social History Allergies: Coded Allergies: Codeine (Verified Allergy, Severe, 09/12/16) Darvon (Verified Allergy, Severe, 09/12/16) Dyazide (Verified Allergy, Severe, 09/12/16) Penicillin (Verified Allergy, Severe, 09/12/16) Sulfa (Verified Allergy, Severe, 09/12/16) Uncoded Allergies: CHLAROMYCETIN (Allergy, Unknown, UNKNOWN, 02/26/16) Past Medical History 1. Seasonal Allergies. 2. Hypothyroidism. 3. Hyperlipidemia. 4. Advanced Osteoarthritis. 5. Chronic Kidney Disease, Stage 2. Past Surgical History 1. Hysterectomy. 2. Caesarian Section. 3. Removal of Abdominal Tumor. Family History Elderly sister with multiple medical problems. Son who lives in [place], but frequently visits multiple times a year. Social History She is a . She is a nonsmoker and nondrinker. She makes no use of recreational drugs. Physical Exam Vital Signs Vital Signs Date Time Temp Pulse Resp B/P Pulse Ox O2 Delivery O2 Flow Rate FiO2 09/12/16 18:16 73 178/80 99 09/12/16 17:30 73 165/75 09/12/16 16:08 73 14 181/96 09/12/16 16:06 70 14 178/120 09/12/16 14:39 72 16 09/12/16 14:38 70 22 154/73 99 Room Air 09/12/16 12:36 97.6 76 16 168/82 99 Physical Exam GENERAL: This is a well-nourished, well-developed patient, in no apparent distress. SKIN: No rashes, ecchymoses or lesions. Cool and dry. HEAD: Atraumatic. Normocephalic. No temporal or scalp tenderness. EYES: Pupils equal round and reactive. Extraocular motions intact. No scleral icterus. No injection or drainage. ENT: Nose without bleeding, purulent drainage or septal hematoma. Throat without erythema, tonsillar hypertrophy or exudate. Uvula midline. Airway patent. NECK: Trachea midline. No JVD or lymphadenopathy. Supple, nontender, no meningeal signs. CARDIOVASCULAR: Regular rate and rhythm without murmurs, gallops, or rubs. RESPIRATORY: Clear to auscultation. Breath sounds equal bilaterally. No wheezes , rales, or rhonchi. GASTROINTESTINAL: Abdomen soft, non-tender, nondistended. No hepato-splenomegaly , or palpable masses. No guarding. MUSCULOSKELETAL: Extremities without clubbing, cyanosis, or edema. No joint tenderness, effusion, or edema noted. No calf tenderness. Negative Homans sign bilaterally. NEUROLOGICAL: Awake and alert. Cranial nerves II through XII intact. Motor and sensory grossly within normal limits. Five out of 5 muscle strength in all muscle groups. Normal speech. Laboratory Laboratory Tests Test 09/12/16 09/12/16 09/12/16 14:37 15:25 15:40 Sodium Level 141 Potassium Level 3.9 Chloride Level 109 Carbon Dioxide Level 27.7 Anion Gap 4 Blood Urea Nitrogen 16 Creatinine 1.15 Estimat Glomerular Filtration 54 Rate Random Glucose 86 Lactic Acid Level 1.0 Calcium Level 9.8 Magnesium Level 2.5 Total Bilirubin 0.6 Aspartate Amino Transf 31 (AST/SGOT) Alanine Aminotransferase 35 (ALT/SGPT) Alkaline Phosphatase 99 Total Creatine Kinase 53 Troponin I LESS THAN 0.02 Total Protein 6.9 Albumin 3.6 White Blood Count 4.4 Red Blood Count 5.04 Hemoglobin 14.2 Hematocrit 44.1 Mean Corpuscular Volume 87.7 Mean Corpuscular Hemoglobin 28.1 Mean Corpuscular Hemoglobin 32.1 Concent Red Cell Distribution Width 14.9 Platelet Count 174 Mean Platelet Volume 8.8 Neutrophils (%) (Auto) 56.8 Lymphocytes (%) (Auto) 30.5 Monocytes (%) (Auto) 10.5 Eosinophils (%) (Auto) 1.4 Basophils (%) (Auto) 0.8 Neutrophils # (Auto) 2.5 Lymphocytes # (Auto) 1.3 Monocytes # (Auto) 0.5 Eosinophils # (Auto) 0.1 Basophils # (Auto) 0.0 CBC Comment DIFF FINAL Differential Comment Prothrombin Time 11.6 Prothromb Time International 1.0 Ratio Activated Partial 21.7 Thromboplast Time Urine Color YELLOW Urine Turbidity HAZY Urine pH 8.0 Urine Specific [place] 1.013 Urine Protein 30 Urine Glucose (UA) NEG Urine Ketones NEG Urine Occult Blood MOD Urine Nitrite NEG Urine Bilirubin NEG Urine Urobilinogen LESS THAN 2.0 Urine Leukocyte Esterase LARGE Urine RBC 99 Urine WBC 133 Urine WBC Clumps FEW Urine Squamous Epithelial 1 Cells Microscopic Urinalysis Comment CATH-CULTURE IND Date/Time Procedure Status Source Growth 09/12/16 15:40 Urine Culture Received Urine Clean Catch Pending 09/12/16 14:35 Aerobic Blood Culture Received Blood Peripheral Pending 09/12/16 14:35 Anaerobic Blood Culture Received Blood Peripheral Pending Result Diagram: 09/12/16 1525 09/12/16 1437 Assessment and Plan Assessment and Plan ASSESSMENT 1. Acute Metabolic Encephalopathy. 2. Urinary Tract Infection, on admission. 3. Labile Systolic Hypertension. 4. Hypothyroidism. 5. Hyperlipidemia. 6. Advanced Osteoarthritis. 7. Chronic Kidney Disease, Stage 2. PLAN 1. Admit to the hospital as an Inpatient. 2. Blood and Urine cultures. 3. Intravenous antibiotics. 4. Follow up laboratory assessment. 5. DVT and PE prophylaxis. Amarjit Asif MD Sep 12, 2016 19:30
[2016-09-12] MEDS: DOCUSATE SODIUM 50 MG/SENNA 8.6 MG TAB PO SCH (20:44)
[2016-09-12] MEDS: CIPROFLOXACIN 400 MG PREMIX 200 ML IV SCH (20:44)
[2016-09-12] MEDS: SODIUM CHLORIDE 0.9% FLUSH 10 ML FLUSH IV FLUSH SCH (20:44)
[2016-09-12] MEDS: CARBOXYMETHYLCELL SOD 0.5% OPTH SOLN 15 ML BTL EACH EYE SCH (20:50)
[2016-09-13] VITALS: BP 180/86; PULSE 70; RESP 18; TEMP 97.5; O2SAT 99
[2016-09-13] MEDS: LEVOTHYROXINE SODIUM 100 MCG TAB PO SCH (05:34)
[2016-09-13 08:00] VITALS: BP 139/65; PULSE 65; RESP 16; TEMP 97.1; O2SAT 97
--- NOTE | 2016-09-13 08:57 | HHI.PR ---
Subjective Remarks She is sitting up in the chair and just finished her breakfast. She is much more appropriate this morning to conversation and in her thought process. She denies any new adverse changes. Her [employer] rep reports that she slept very well last night. Objective - Vital Signs Date Time Temp Pulse Resp B/P Pulse Ox O2 Delivery O2 Flow Rate FiO2 09/13/16 08:00 97.1 65 16 139/65 97 09/13/16 00:00 97.5 70 18 180/86 99 09/12/16 20:30 168/84 Automatic Cuff 09/12/16 20:00 97.9 70 20 192/84 99 09/12/16 18:16 73 178/80 99 09/12/16 17:30 73 165/75 09/12/16 16:08 73 14 181/96 09/12/16 16:06 70 14 178/120 09/12/16 14:39 72 16 09/12/16 14:38 70 22 154/73 99 Room Air 09/12/16 12:36 97.6 76 16 168/82 99 I/O 09/12/16 09/12/16 09/12/16 09/13/16 09/13/16 09/13/16 07:00 15:00 23:00 07:00 15:00 23:00 Intake Total 320 ml 0 ml Output Total 250 ml Balance 70 ml 0 ml Intake Oral 120 ml 0 ml IV Total 200 ml Output Urine Total 250 ml # Bowel Movements 1 Result Diagram: 09/12/16 1525 09/12/16 1437 Objective Remarks GENERAL: Alert. She is aware of her surroundings. SKIN: Warm and dry. HEAD: Normocephalic and atraumatic. EYES: No scleral icterus. No injection or drainage. NECK: Supple, trachea midline. No JVD or lymphadenopathy. CARDIOVASCULAR: Regular rate and rhythm without murmurs, gallops, or rubs. RESPIRATORY: Breath sounds equal bilaterally. No accessory muscle use. GASTROINTESTINAL: Abdomen soft, non-tender, nondistended. MUSCULOSKELETAL: No cyanosis, or edema. BACK: Nontender. No CVA tenderness. A/P Assessment and Plan ASSESSMENT 1. Acute Metabolic Encephalopathy-improved status. 2. Urinary Tract Infection, on admission. 3. Labile Systolic Hypertension. 4. Hypothyroidism. 5. Hyperlipidemia. 6. Advanced Osteoarthritis. 7. Chronic Kidney Disease, Stage 2. PLAN 1. Continue with the current antibiotic treatment. 2. Blood and Urine culture results. 3. Laboratory assessments are pending. 4. Activity up in the chair, as tolerated. 5. DVT and PE prophylaxis. Amarjit Asif MD Sep 13, 2016 08:57
[2016-09-13] MEDS: SODIUM CHLORIDE 0.9% FLUSH 10 ML FLUSH IV FLUSH SCH ×2 (09:00→21:17)
[2016-09-13] MEDS: ASPIRIN 81 MG CHEW TAB CHEW SCH (09:42)
[2016-09-13] MEDS: CIPROFLOXACIN 400 MG PREMIX 200 ML IV SCH ×2 (09:42→21:17)
[2016-09-13] MEDS: DOCUSATE SODIUM 50 MG/SENNA 8.6 MG TAB PO SCH ×2 (09:42→21:00)
[2016-09-13 12:00] VITALS: BP 119/57; PULSE 70; RESP 16; TEMP 96.6; O2SAT 99
--- NOTE | 2016-09-13 12:41 | EKG ---
Date Performed: 09/12/2016 Time Performed: 13:10:58 PTAGE: 89 years EKG: Sinus rhythm PATTERN CONSISTENT WITH PULMONARY DISEASE LEFT ANTERIOR FASCICULAR BLOCK Compared to prior tracing n o significant change ABNORMAL ECG PREVIOUS TRACING : 06/11/2016 18.19 DOCTOR: Demond Campa Interpretating Date/Time 09/13/2016 12:34:56
[2016-09-13 16:00] VITALS: BP 120/58; PULSE 70; RESP 16; TEMP 95.6; O2SAT 97
[2016-09-13] MEDS ORDERED: CHOLECALCIFEROL (VIT D3) 1000 UNIT TAB PO SCH (16:00)
[2016-09-13] MEDS ORDERED: ASCORBIC ACID 500 MG TAB PO SCH (16:00)
[2016-09-13] MEDS: ENOXAPARIN SODIUM 30 MG/0.3 ML SYRINGE SQ SCH (16:42)
[2016-09-13 20:00] VITALS: BP 127/55; PULSE 79; RESP 18; TEMP 96.8; O2SAT 97
[2016-09-13] MEDS: CARBOXYMETHYLCELL SOD 0.5% OPTH SOLN 15 ML BTL EACH EYE SCH (21:18)
[2016-09-14] VITALS: BP 99/80; PULSE 57; RESP 19; TEMP 97.6; O2SAT 95
[2016-09-14] MEDS: LEVOTHYROXINE SODIUM 100 MCG TAB PO SCH (06:06)
[2016-09-14] MEDS: CIPROFLOXACIN 400 MG PREMIX 200 ML IV SCH (07:47)
[2016-09-14] MEDS: SODIUM CHLORIDE 0.9% FLUSH 10 ML FLUSH IV FLUSH SCH (07:48)
[2016-09-14] MEDS: ASPIRIN 81 MG CHEW TAB CHEW SCH (07:53)
[2016-09-14] MEDS: DOCUSATE SODIUM 50 MG/SENNA 8.6 MG TAB PO SCH (07:53)
[2016-09-14 08:00] VITALS: BP 151/65; PULSE 62; RESP 16; TEMP 96.6; O2SAT 99
[2016-09-14 12:00] VITALS: BP 127/61; PULSE 65; RESP 16; TEMP 97.9; O2SAT 98
--- NOTE | 2016-09-14 12:55 | HHI.PR ---
Subjective Remarks She is lying in bed with the caregiver at the bedside. She has no report of any new adverse symptoms. She is tolerating all of the medications fine, by report. Objective - Vital Signs Date Time Temp Pulse Resp B/P Pulse Ox O2 Delivery O2 Flow Rate FiO2 09/14/16 12:00 97.9 65 16 127/61 98 09/14/16 08:00 96.6 62 16 151/65 99 09/14/16 00:00 97.6 57 19 99/80 95 09/13/16 20:00 96.8 79 18 127/55 97 09/13/16 16:00 95.6 70 16 120/58 97 I/O 09/13/16 09/13/16 09/13/16 09/14/16 09/14/16 09/14/16 07:00 15:00 23:00 07:00 15:00 23:00 Intake Total 0 ml 1210 ml 680 ml 120 ml Balance 0 ml 1210 ml 680 ml 120 ml Intake Oral 0 ml 960 ml 480 ml 120 ml IV Total 250 ml 200 ml # Voids 2 2 2 # Bowel Movements 1 1 0 Result Diagram: 09/12/16 1525 09/12/16 1437 Objective Remarks GENERAL: Alert and in no distress. SKIN: Warm and dry. HEAD: Normocephalic. EYES: No scleral icterus. No injection or drainage. NECK: Supple, trachea midline. No JVD or lymphadenopathy. CARDIOVASCULAR: Regular rate and rhythm without murmurs, gallops, or rubs. RESPIRATORY: Breath sounds equal bilaterally. No accessory muscle use. GASTROINTESTINAL: Abdomen soft, non-tender, nondistended. MUSCULOSKELETAL: No cyanosis, or edema. BACK: Nontender without obvious deformity. No CVA tenderness. A/P Assessment and Plan ASSESSMENT 1. Acute Metabolic Encephalopathy-improved status. 2. Urinary Tract Infection, on admission. 3. Labile Systolic Hypertension. 4. Hypothyroidism. 5. Hyperlipidemia. 6. Advanced Osteoarthritis. 7. Chronic Kidney Disease, Stage 2. MEDICALLY IMPROVED STATUS PLAN 1. Continue with the current antibiotic treatment. 2. Blood and Urine culture results. 3. Laboratory assessments are pending. 4. Activity up in the chair, as tolerated. 5. DVT and PE prophylaxis. HOME TODAY WITH HOME HEALTH CARE Amarjit Asif MD Sep 14, 2016 12:54
[2016-09-14] MEDS ORDERED: CIPR250T52 PO (13:05)
--- NOTE | 2016-09-14 13:16 | HHI.FF ---
Face to Face Verification Diagnosis: (1) UTI (urinary tract infection) Physical Therapy Order: Evaluate and Treat, Improve ambulation, Strength and gait training Home Health Nursing Order: Signs/symptoms of disease process Nursing assessment with vital signs I have seen patient Kaye Cole on 09/14/16. My clinical findings support the need for the requested home health care services because: Limited ability to care for self High risk of falls I certify that my clinical findings support that this patient is homebound because: Unsteady gait/balance Unsafe to leave home unassisted Amarjit Asif MD Sep 14, 2016 13:16
[2016-09-14 16:00] VITALS: BP 141/63; PULSE 72; RESP 15; TEMP 96.3; O2SAT 98
[2016-09-14] MEDS ORDERED: CIPROFLOXACIN 250 MG TAB PO SCH (21:00)
== END 2016-09-14 18:40 | disposition home or self-care (01) | DRG 689 ==
LOC: NEDAMB 11:52 → INTOOBSV 16:54 → UNDOADMOB 16:54 → OBSVTOIN 16:54 → NEDH 16:54 → NEDA 16:54 → N07B 18:32 → NEDH 18:32 → UNDODISIN 09-14 18:40
PROVIDERS: ADMIT Internal Medicine; ATTEND Internal Medicine
DX: N39.0 Urinary tract infection, site not specified (principal); G93.41 Metabolic encephalopathy; F03.90 Unspecified dementia, unspecified severity, without behavioral disturbance, psychotic disturbance, mood disturbance, and anxiety; F41.9 Anxiety disorder, unspecified; E03.9 Hypothyroidism, unspecified; E78.5 Hyperlipidemia, unspecified; M19.90 Unspecified osteoarthritis, unspecified site; I12.9 Hypertensive chronic kidney disease with stage 1 through stage 4 chronic kidney disease, or unspecified chronic kidney disease; N18.2 Chronic kidney disease, stage 2 (mild)
CPT/HCPCS: 70450; 71010; 80053; 81001; 82550; 83605; 83735; 84484; 85025; 85610; 85730; 86403; 87040; 87077; 87086; 87186; 87205; 93005; J0692; J0744; J1650

== ENCOUNTER 2016-10-11 20:13 | Emergency (ER) | payer MEDICARE, BC, OTHER ==
[~2016-10-11 20:13] MED LIST changes: -ASCO500C PO; -BENZ100 PO; +C 50TAB PO; -CIPR250T2 PO; +CIPR250T52 PO; +FLUT1SPR5 EACH NARE; -FLUTI44I INH; -VITA10003 PO; +VITA100064 PO
[2016-10-11 20:24] VITALS: BP 170/75; PULSE 65; RESP 16; TEMP 97.9; O2SAT 99
--- NOTE | 2016-10-11 20:51 | PD ---
HPI Chief Complaint: Fall Time Seen by Provider: 20:51 Travel History International Travel<30 days: No Contact w/Intl Traveler<30days: No Traveled to known affect area: No History of Present Illness HPI 89-year-old female with history of thyroid disease, dementia, hypertension, difficulty hearing, arthritis, anxiety, presents to emergency department for evaluation following a trip and fall. Patient states that she was at home between 3:00 and 5:00 today with her caregiver. She was walking with her walker and went to turn right when her caregiver pulled her walker to the left. She states this resulted in her tripping and falling backwards, striking her head. She did not lose consciousness. She does report posterior head pain, left shoulder pain, and left lateral rib pain. She was able to get up and go on with her day. She made her 6:00 appointment with friends. She contacted her son who wanted her to come and get evaluated in the emergency department. Patient has had no new focal deficits or weakness. She reports no nausea or vomiting. She has no other symptoms to report. PFSH Past Medical History Arthritis: Yes (osteoarthritis) Anxiety: Yes Cancer: Yes (uterine) Chemotherapy: Yes Dementia: Yes (PER HX) Diminished Hearing: Yes (HEARING AIDES BILAT) Genitourinary: Yes Hypertension: Yes Psychiatric: Yes Reproductive: No Respiratory: No Immunizations Current: Yes Thyroid Disease: Yes Past Surgical History Abdominal Surgery: Yes (ABD TUMOR REMOVED) Section: Yes Gynecologic Surgery: Yes (HYSTERECTOMY) Hysterectomy: Yes Social History Alcohol Use: No Tobacco Use: No Substance Use: No Allergies-Medications (Allergen,Severity, Reaction): Coded Allergies: Codeine (Verified Allergy, Severe, 10/11/16) Darvon (Verified Allergy, Severe, 10/11/16) Dyazide (Verified Allergy, Severe, 10/11/16) Penicillin (Verified Allergy, Severe, 10/11/16) Sulfa (Verified Allergy, Severe, 10/11/16) Uncoded Allergies: CHLAROMYCETIN (Allergy, Unknown, UNKNOWN, 02/26/16) Reported Meds & Prescriptions Reported Meds & Active Scripts Active Restoril (Temazepam) 15 Mg Cap 15 Mg PO HS PRN Reported Flonase Nasal Newberry (Fluticasone Nasal Newberry) 50 Mcg/Act Newberry 1 Spr EACH NARE DAILY PRN Vitamin D3 (Cholecalciferol) 1,000 Unit Tab 1,000 Units PO DAILY@1600 C 500 (Ascorbic Acid) 500 Mg Tab 500 Mg PO DAILY@1600 Levothyroxine (Levothyroxine Sodium) 100 Mcg Tab 100 Mcg PO DAILY Refresh Plus Unit-Dose 0.5% Opth (Carboxymethylcellulose Sodium 0.5% Opth) 0.5% Drops 1 Drop EACH EYE HS Aspirin 81 Mg Chew 81 Mg CHEW DAILY Review of Systems Except as stated in HPI: all other systems reviewed are Neg Physical Exam Narrative GENERAL: Elderly female patient, sitting up in bed in no acute distress. Patient is hard of hearing SKIN: Focused skin assessment warm/dry. HEAD: Atraumatic. Normocephalic. EYES: Pupils equal and round. No scleral icterus. No injection or drainage. Patient's eyes are paralyzed with a straight gaze. ENT: No nasal bleeding or discharge. Mucous membranes pink and moist. NECK: Trachea midline. No JVD. CARDIOVASCULAR: Regular rate and rhythm. RESPIRATORY: No accessory muscle use. Clear to auscultation. Breath sounds equal bilaterally. Even respirations. No crepitus elicited to palpation over the thoracic cage. Tenderness on the anterolateral aspect of the left rib cage. GASTROINTESTINAL: Abdomen soft, non-tender, nondistended. Hepatic and splenic margins not palpable. MUSCULOSKELETAL: No obvious deformities. No clubbing. No cyanosis. No edema. Moves all extremities. NEUROLOGICAL: Awake and alert. No obvious cranial nerve deficits. Motor grossly within normal limits. Normal speech. PSYCHIATRIC: Appropriate mood and affect; insight and judgment normal. Data Data Last Documented VS Vital Signs Date Time Temp Pulse Resp B/P Pulse Ox O2 Delivery O2 Flow Rate FiO2 10/11/16 20:24 97.9 65 16 170/[address] Brain W/O Iv Contrast(Rout) (10/11/16 ) Ct Cerv Spine W/O Contrast (10/11/16 ) Chest, Single Ap (10/11/16 ) Shoulder, Complete (>2vws) (10/11/16 ) Pelvis, Ap Only (Routine) (10/11/16 ) MDM Medical Decision Making Medical Screen Exam Complete: Yes Emergency Medical Condition: Yes Medical Record Reviewed: Yes Differential Diagnosis Minor head injury versus skull contusion versus fracture versus intracranial hemorrhage versus contusions versus sprains versus fractures Narrative Course 89-year-old female presents to the emergency department for evaluation. Patient appears without distress. She has no acute focal deficits or weakness. Patient is currently being treated for UTI. She is requesting a lab work at this time. Patient's vital signs are stable. Bulging studies are complete without acute abnormality. Patient will be discharged home. She is encouraged to follow-up with primary care provider and return immediately with any acute worsening of symptoms. Last Impressions Shoulder X-Ray 10/11/16 0000 Signed Impressions: Service Date/Time: Tuesday, October 11, 2016 20:41 - CONCLUSION: No evidence of fracture. Renny Abreu MD Pelvis X-Ray 10/11/16 0000 Signed Impressions: Service Date/Time: Tuesday, October 11, 2016 20:46 - CONCLUSION: No evidence of fracture. Renny Abreu MD Head CT 10/11/16 0000 Signed Impressions: Service Date/Time: Tuesday, October 11, 2016 20:50 - CONCLUSION: No acute intracranial findings. Renny Abreu MD Chest X-Ray 10/11/16 0000 Signed Impressions: Service Date/Time: Tuesday, October 11, 2016 20:40 - CONCLUSION: No acute cardiopulmonary disease identified. Renny Abreu MD Cervical Spine CT 10/11/16 0000 Signed Impressions: Service Date/Time: Tuesday, October 11, 2016 20:50 - CONCLUSION: No evidence of fracture. Severe multilevel degenerative findings unchanged. Renny Abreu MD Diagnosis Primary Impression: Minor head injury without loss of consciousness Qualified Code: S09.90XA - Minor head injury without loss of consciousness, initial encounter Additional Impressions: Left shoulder pain Qualified Code: M25.512 - Acute pain of left shoulder Contusion of rib on left side Qualified Code: S20.212A - Contusion of rib on left side, initial encounter Referrals: Primary Care Physician Patient Instructions: Contusion in Adults (ED), General Instructions, Head Injury (ED) Additional Instructions: Ambulate with walker assistance Follow-up with her primary care provider Return immediately with any acute worsening of symptoms Med/Other Pt SpecificInfo: No Change to Meds Disposition: 01 DISCHARGE HOME Condition: Stable Olive Alaniz Oct 11, 2016 20:51
--- NOTE | 2016-10-11 20:58 | RADRPT ---
EXAM DATE/TIME: 10/11/2016 20:40 [facility] COMPARISON: CHEST SINGLE AP, September 12, 2016, 12:37. INDICATIONS : Fall. MEDICAL HISTORY : Dementia. Uterine cancer SURGICAL HISTORY : None. ENCOUNTER: Initial ACUITY: 1 day PAIN SCORE: 0/10 LOCATION: Bilateral chest FINDINGS: Single AP view of the chest. The lungs are clear. Cardiomediastinal silhouette polyp, and unchanged. No evidence of pleural effusion or pneumothorax. CONCLUSION: No acute cardiopulmonary disease identified. Renny Abreu MD on October 11, 2016 at 20:56 Board Certified Radiologist. This report was verified electronically.
--- NOTE | 2016-10-11 20:59 | RADRPT ---
EXAM DATE/TIME: 10/11/2016 20:41 [facility] COMPARISON: No previous studies available for comparison. INDICATIONS : Fall. MEDICAL HISTORY : Dementia. Uterine cancer SURGICAL HISTORY : None. ENCOUNTER: Initial ACUITY: 1 day PAIN SCORE: 0/10 LOCATION: Left shoulder FINDINGS: 4 views left shoulder. Bone alignment within normal limits. No evidence of fracture. Mild acromiocla vicular joint hypertrophy. Glenohumeral joint within normal limits. CONCLUSION: No evidence of fracture. Renny Abreu MD on October 11, 2016 at 20:57 Board Certified Radiologist. This report was verified electronically.
--- NOTE | 2016-10-11 21:00 | RADRPT ---
EXAM DATE/TIME: 10/11/2016 20:46 [facility] COMPARISON: No previous studies available for comparison. INDICATIONS : Fall. MEDICAL HISTORY : Dementia. Uterine cancer SURGICAL HISTORY : None. ENCOUNTER: Initial ACUITY: 1 day PAIN SCORE: 0/10 LOCATION: Bilateral pelvis FINDINGS: Single AP view of the pelvis. Diffuse bone demineralization. Prominent degenerative findings of the l umbar spine. Bone alignment within normal limits. No evidence of fracture. Surgical clips in the mid line lower abdomen/pelvis. CONCLUSION: No evidence of fracture. Renny Abreu MD on October 11, 2016 at 20:58 Board Certified Radiologist. This report was verified electronically.
--- NOTE | 2016-10-11 21:04 | RADRPT ---
EXAM DATE/TIME: 10/11/2016 20:50 [facility] COMPARISON: CT BRAIN W/O CONTRAST, September 12, 2016, 15:05. INDICATIONS : Trauma; fall. RADIATION DOSE: 31.66 CTDIvol (mGy) MEDICAL HISTORY : Hypertension. Dementia. uterine cancer SURGICAL HISTORY : Hysterectomy. section.Abdominal tumor removed, renal transplant ENCOUNTER: Initial ACUITY: 1 day PAIN SCALE: 6/10 LOCATION: cranial TECHNIQUE: Multiple contiguous axial images were obtained of the head. Using automated exposure control and adj ustment of the mA and/or kV according to patient size, radiation dose was kept as low as reasonably a chievable to obtain optimal diagnostic quality images. DICOM format image data is available electro nically for review and comparison. FINDINGS: CEREBRUM: Diffuse atrophy and chronic small vessel white matter ischemic change again seen. No evidence of mid line shift, mass lesion, hemorrhage or acute infarction. No extra-axial fluid collections are seen. POSTERIOR FOSSA: The cerebellum and brainstem are intact. The 4th ventricle is midline. The cerebellopontine angle i s unremarkable. EXTRACRANIAL: The visualized portion of the orbits is intact. SKULL: The calvaria is intact. No evidence of skull fracture. CONCLUSION: No acute intracranial findings. Renny Abreu MD on October 11, 2016 at 20:59 Board Certified Radiologist. This report was verified electronically.
--- NOTE | 2016-10-11 21:16 | RADRPT ---
EXAM DATE/TIME: 10/11/2016 20:50 [facility] COMPARISON: CT CERVICAL SPINE W/O CONTRAST, February 06, 2015, 13:36. INDICATIONS : Trauma; fall. RADIATION DOSE: 20.68 CTDIvol (mGy) MEDICAL HISTORY : Hypertension. Dementia. Uterine cancer, Renal transplant SURGICAL HISTORY : Hysterectomy. section.Abdominal tumor removed ENCOUNTER: Initial ACUITY: 1 day PAIN SCALE: 5/10 LOCATION: neck TECHNIQUE: Volumetric scanning of the cervical spine was performed. Multiplanar reconstructions in the sagittal, coronal and oblique axial planes were performed. Using automated exposure control and adjustment o f the mA and/or kV according to patient size, radiation dose was kept as low as reasonably achievable to obtain optimal diagnostic quality images. DICOM format image data is available electronically f or review and comparison. FINDINGS: No evidence of fracture. Cervical kyphosis and fusion of the C3, C4, C5, C6, and C7 vertebral bodies again seen. No change in alignment. Multilevel severe degenerative findings unchanged from prior stud y of 02/06/2015. CONCLUSION: No evidence of fracture. Severe multilevel degenerative findings unchanged. Renny Abreu MD on October 11, 2016 at 21:08 Board Certified Radiologist. This report was verified electronically.
== END 2016-10-11 23:30 | disposition home or self-care (01) ==
LOC: NEPE 20:13
DX: S09.90XA Unspecified injury of head, initial encounter (principal); S20.212A Contusion of left front wall of thorax, initial encounter; M25.512 Pain in left shoulder; W01.0XXA Fall on same level from slipping, tripping and stumbling without subsequent striking against object, initial encounter; Y93.01 Activity, walking, marching and hiking
CPT/HCPCS: 70450; 71010; 72125; 72170; 73030